=== PATIENT | female | born 1950 | race Caucasian/White ===

== ENCOUNTER 2021-10-31 12:38 | Outpatient (REF) | payer MEDICARE, SELFPAY ==
--- NOTE | ~2021-10-31 | MM_ITS ---
EXAMINATION: MM SCREENING DIGITAL BREAST TOMOSYNTHESIS, BILATERAL CLINICAL INFORMATION: Screening. Asymptomatic. Prior nlb-fx-xqkaj mammography from [place] requested, currently unavailable. No known family history breast cancer. The lifetime risk of breast cancer based on the Tyrer-Cuzick Model is 8%. COMPARISON: None. TECHNIQUE: Digital breast tomosynthesis is performed in both the craniocaudal and mediolateral oblique views along with computer-aided detection (CAD). Synthesized 2D images are generated from the tomosynthesis. FINDINGS: There are scattered areas of fibroglandular density (ACR BI-RADS breast composition Category b). Breast tissue composition borders on heterogeneously dense. There are scattered benign round calcifications in each breast. No architectural abnormality. The axilla and skin contours are unremarkable. No significant mass left breast. There is oval focal asymmetric density 1.7 x 2.5 cm periareolar upper outer right breast, possibly a cyst. MM/MM tomosynthesis screening BI IMPRESSION: Right: -Oval focal asymmetric density periareolar upper outer right breast, possibly a cyst. Left: -No mammographic evidence of malignancy. ASSESSMENT: BI-RADS 0: Incomplete - Need prior outside studies for comparison RECOMMENDATION: -Radiology department staff will attempt to retrieve outside prior exam(s) to allow for comparison in an addendum report. -If prior outside exam is unable to be retrieved, patient will be recalled for additional imaging right breast. This patient's information was entered into a reminder system with a target due date for their next mammogram.
== END 2021-10-31 12:39 | disposition home or self-care (01) ==
LOC: HO.MAMMO 12:38
PROVIDERS: PCP Internal Medicine; Visit Provider Internal Medicine
DX: Z12.31 Encounter for screening mammogram for malignant neoplasm of breast (principal)
CPT/HCPCS: 77063; 77067

== ENCOUNTER → 2021-11-05 11:14 | Outpatient (REF) | payer MEDICARE, SELFPAY ==
--- NOTE | 2021-11-05 11:16 | HM_ITS ---
Conclusion: 1. Patient was monitored for total period of 6 days and 23 hours 2. Baseline rhythm is normal sinus rhythm with average heart of 69 beats per minute 3. No significant pauses or bradycardia noted 4. 33 episodes of short supraventricular runs, longest lasting 7 beats 5. Total of 1024 PACs accounting for 0.16% of total beats account for occasional PACs 6. No patient reported events MTDD
== END ==
LOC: HO.CARD 11:14
PROVIDERS: PCP Internal Medicine; Visit Provider Internal Medicine
DX: I48.91 Unspecified atrial fibrillation (principal); E55.9 Vitamin D deficiency, unspecified; G62.9 Polyneuropathy, unspecified
CPT/HCPCS: 93242

== ENCOUNTER 2021-12-06 09:46 | Outpatient (REF) | payer MEDICARE, SELFPAY ==
[2021-12-06 11:15] LABS: MANUAL DIFF FLAG NO
[2021-12-06 11:23] LABS: Appearance Urine Clear; Color Urine Yellow; Glucose Urine UA Negative (Negative); Leukocyte Esterase Urine Small (1+) (Negative); Nitrite Urine Negative (Negative); Specific Gravity - Urine 1.015 (1.005-1.025); UMIC TRIGGER UA YES; Urine Blood Negative (Negative); Urine Ketones Negative (Negative); Urine Protein Negative (Neg-Trace)
[2021-12-06 11:26] LABS: Basophils Absolute Auto 0.1 X10*3/uL (0.0-0.2); Eosinophils Absolute Auto 0.2 X10*3/uL (0.0-0.4); Hematocrit 42.9 % (37.0-47.0); Hemoglobin 14.1 g/dl (12.0-16.0); Imm Gran Abs Auto 0.02 X10*3/uL (0.00-0.03); Imm Gran Pct Auto 0.3 % (0.0-0.4); Lymphocytes Absolute Auto 1.6 X10*3/uL (1.2-4.9); Lymphocytes Percent Auto 25.6 % (20-40); Mean Corpuscular HGB Conc 32.9 g/dl (31.0-35.0); Mean Corpuscular Volume 88.3 fL (80.0-98.0); Monocytes Absolute Auto 0.4 X10*3/uL (0.1-1.2); Monocytes Percent Auto 6.8 % (2-11); Neutrophils Absolute Auto 3.8 x10*3/uL (2.0-8.3); Neutrophils Percent Auto 63.3 % (45-73); Platelet Count 253 X10*3/uL (160-400); Red Blood Count 4.86 X10*6/uL (4.20-5.50); Red Cell Distribution Width 13.5 % (11.0-16.0); White Blood Count 6.1 X10*3/uL (4.8-10.8)
[2021-12-06 11:42] LABS: Bacteria Urine None Seen (None Seen); Hyaline Casts Urine 0-2 /LPF (0-2); RBC Urine 0-2 /HPF (0-2); Squamous Epithelial Cell Urine 0-2 /HPF (0-2); WBC Urine 0-5 /HPF (0-5)
[2021-12-06 11:47] LABS: Alanine Aminotransferase 16 U/L (0-31); Albumin Level 4.4 g/dL (3.5-5.0); Alkaline Phosphatase 71 U/L (39-117); Anion Gap 13 (12-20); Aspartate Amino Transferase 20 U/L (5-31); Bilirubin Total 0.5 mg/dL (0.0-1.0); Blood Urea Nitrogen 16 mg/dL (9-16); Calcium 9.3 mg/dL (8.4-10.2); Carbon Dioxide 26 mmol/L (22-29); Chloride 105 mmol/L (96-108); Cholesterol 258 mg/dL; Estimated Glomerular Filt Rate > 60; Glucose Fasting 88 mg/dL (60-99); HDL Cholesterol 61 mg/dL; LDL Cholesterol Calculated 175 mg/dl; Potassium 4.4 mmol/L (3.3-5.1); Sodium 140 mmol/L (135-145); Total Protein 7.1 g/dL (6.5-8.0); Triglycerides 113 mg/dL
[2021-12-06 12:10] LABS: TSH reflex Free T4 0.96 uIU/mL (0.32-4.0); Vitamin D 25-OH Total 75.7 ng/mL (>30)
[2021-12-06 12:45] LABS: Folate 17.6 ng/mL (> or = 4.0); Vitamin B12 > 2000 pg/mL (200-900)
== END 2021-12-06 09:47 | disposition home or self-care (01) ==
LOC: HO.HMGCLDS 09:46
PROVIDERS: PCP Internal Medicine; Visit Provider Internal Medicine
DX: Z00.00 Encounter for general adult medical examination without abnormal findings (principal); G62.9 Polyneuropathy, unspecified; I48.91 Unspecified atrial fibrillation; E55.9 Vitamin D deficiency, unspecified
CPT/HCPCS: 36415; 80053; 80061; 81001; 82306; 82607; 82746; 84443; 85025

== ENCOUNTER 2022-01-17 13:49 | Outpatient (REF) | payer MEDICARE, SELFPAY ==
[2022-01-22 20:52] LABS: HPV mRNA E6/E7 Not Detected (Not Detected)
== END 2022-01-17 13:50 | disposition home or self-care (01) ==
LOC: HO.LNP 13:49
PROVIDERS: Visit Provider Internal Medicine
DX: Z01.419 Encounter for gynecological examination (general) (routine) without abnormal findings (principal); Z11.51 Encounter for screening for human papillomavirus (HPV)
CPT/HCPCS: 87624; 88142

== ENCOUNTER 2022-01-24 11:05 | Outpatient (REF) | payer MEDICARE, SELFPAY ==
--- NOTE | ~2022-01-24 | MM_ITS ---
EXAMINATION: BONE DENSITOMETRY CLINICAL INDICATION: Menopause. COMPARISON: None (current study represents initial baseline exam). TECHNIQUE: Using a [employer] DXA System (software version: 13.1) manufactured by [employer], dual-energy x-ray absorptiometry was performed of the lumbar spine and left hip. The images are of good technical quality. Summary results are attached. FINDINGS: AP SPINE L1-L4: BMD 1.001 g/cm2, Z-score -0.4, T-score -1.5, osteopenia. LEFT FEMUR, NECK: BMD 0.838 g/cm2, Z-score -0.1, T-score -1.4, osteopenia. LEFT FEMUR, TOTAL: BMD 0.784 g/cm2, Z-score -0.7, T-score -1.8, osteopenia. IDENTIFIED RISK FACTORS: Menopause, height loss. HISTORY OF FRACTURE: Finger. MEDICATIONS: Multivitamin, vitamin D. MM/XR DEXA axial skeleton IMPRESSION: 1. DIAGNOSIS: Osteopenia based on the lowest T-score value of -1.8 in the total femur applying World Health Organization criteria. 2. 10-YEAR FRACTURE RISK PREDICTION, FRAX: Major osteoporotic fracture (clinical spine, forearm, hip or shoulder) 9.5%. Hip fracture 1.3%. 3. Treatment Recommendations: NOF guidelines recommend consideration for treatment in postmenopausal women and men age 50 and older presenting with the following: -A hip or vertebral (clinical or morphometric) fracture. -T-score less than or equal to -2.5 at the femoral neck or spine after appropriate evaluation to exclude secondary causes. -Low bone mass at the hip or spine and a 10-year fracture probability by FRAX of greater than or equal to 3% for hip fracture or greater than or equal to 20% for major osteoporotic fracture based on the [place] adapted WHO algorithm. 4. Other Recommendations: All treatment decisions require clinical judgment and consideration of individual patient factors, including patient preferences, comorbidities, previous drug use, risk factors not captured in the FRAX model (e.g. frailty, falls, vitamin D deficiency, increased bone turnover, interval significant decline in bone density) and possible under or overestimation of fracture risk by FRAX. Additional medical evaluation for secondary cause of low bone mineral density may be appropriate. FUTURE SCAN RECOMMENDATION: People with diagnosed cases of osteoporosis or at high risk for fracture should have regular bone mineral density tests. For patients eligible for Medicare, routine testing is allowed once every 2 years. The testing frequency can be increased to one year for patients who have rapidly progressing disease, those who are receiving or discontinuing medical therapy to restore bone mass, or have additional risk factors.
== END 2022-01-24 11:06 | disposition home or self-care (01) ==
LOC: HO.MAMMO 11:05
PROVIDERS: PCP Internal Medicine; Visit Provider Internal Medicine
DX: Z13.820 Encounter for screening for osteoporosis (principal); R29.890 Loss of height; Z78.0 Asymptomatic menopausal state
CPT/HCPCS: 77080

== ENCOUNTER 2023-01-06 11:32 | Outpatient (REF) | payer MEDICARE, SELFPAY ==
[2023-01-06 13:45] LABS: MANUAL DIFF FLAG NO
[2023-01-06 13:49] LABS: Basophils Absolute Auto 0.1 X10*3/uL (0.0-0.2); Basophils Percent Auto 1.1 % (0-2); Eosinophils Absolute Auto 0.3 X10*3/uL (0.0-0.4); Eosinophils Percent Auto 4.8 % (0-4); Hematocrit 43.2 % (37.0-47.0); Hemoglobin 14.1 g/dl (12.0-16.0); Imm Gran Abs Auto 0.02 X10*3/uL (0.00-0.03); Imm Gran Pct Auto 0.3 % (0.0-0.4); Lymphocytes Absolute Auto 1.5 X10*3/uL (1.2-4.9); Lymphocytes Percent Auto 23.2 % (20-40); Mean Corpuscular HGB Conc 32.6 g/dl (31.0-35.0); Mean Corpuscular Hemoglobin 28.8 pg (27.0-33.0); Mean Corpuscular Volume 88.3 fL (80.0-98.0); Monocytes Absolute Auto 0.4 X10*3/uL (0.1-1.2); Monocytes Percent Auto 6.8 % (2-11); Neutrophils Absolute Auto 4.1 x10*3/uL (2.0-8.3); Neutrophils Percent Auto 63.8 % (45-73); Platelet Count 253 X10*3/uL (160-400); Red Blood Count 4.89 X10*6/uL (4.20-5.50); Red Cell Distribution Width 13.5 % (11.0-16.0); White Blood Count 6.4 X10*3/uL (4.8-10.8)
[2023-01-06 14:50] LABS: Alanine Aminotransferase 18 U/L (0-31); Albumin Level 4.2 g/dL (3.5-5.0); Alkaline Phosphatase 74 U/L (39-117); Anion Gap 12 (12-20); Aspartate Amino Transferase 20 U/L (5-31); Bilirubin Total 0.4 mg/dL (0.0-1.0); Blood Urea Nitrogen 16 mg/dL (9-16); Calcium 9.4 mg/dL (8.4-10.2); Carbon Dioxide 25 mmol/L (22-29); Chloride 106 mmol/L (96-108); Cholesterol 251 mg/dL (<200); Estimated Glomerular Filt Rate > 60; Glucose Fasting 86 mg/dL (60-99); HDL Cholesterol 58 mg/dL (>40); LDL Cholesterol Calculated 165 mg/dL (<100); Potassium 4.1 mmol/L (3.3-5.1); Sodium 139 mmol/L (135-145); Total Protein 7.2 g/dL (6.5-8.0); Triglycerides 143 mg/dL (<150)
[2023-01-06 14:55] LABS: TSH reflex Free T4 1.01 uIU/mL (0.32-4.0)
== END 2023-01-06 11:33 | disposition home or self-care (01) ==
LOC: HO.HMGCLDS 11:32
PROVIDERS: PCP Internal Medicine; Visit Provider Internal Medicine
DX: Z00.00 Encounter for general adult medical examination without abnormal findings (principal); E78.5 Hyperlipidemia, unspecified; I48.91 Unspecified atrial fibrillation
CPT/HCPCS: 36415; 80053; 80061; 82306; 84443; 85025

== ENCOUNTER 2023-01-22 09:28 | Outpatient (AMB) | payer MEDICARE, SELFPAY ==
--- NOTE | 2023-01-22 09:30 | MHC.PC.OV ---
Vital Signs 01/22/23 09:31 Height 5 ft 6 in Weight 182 lb BMI 29.4 BP 116/70 Blood Pressure Location Lt brachial Position Sitting Pulse 71 Pulse Source Pulse Oximeter Pulse Oximetry (%) 97 Oxygen Delivery Method Room Air Intake Visit Reasons: Vitrectomy of the left eye, 01/30 Intake Note: Pt is here today for pre op. Pt states that she had some congestion and now its in her ears, started with sinus congestion and pain. Allergies No Known Allergies Allergy (Verified 01/22/23 09:33) Medication List - Last Reconciled 01/22/23 by Lorena Villa MD aspirin 325 mg PO DAILY lceytn-vkpnyyrc-mfx C-E-herbal 1,250 mcg-50 mg -67.5 mg-15 mg tabs PO cholecalciferol (vitamin D3) 125 mcg PO QWEEK coenzyme [id number] E 100-100 mg-unit caps PO ginkgo biloba 400 mg PO DAILY Lactobacillus acidophilus (Probiotic) 10,000 mmu cells PO DAILY loratadine 10 mg PO DAILY lutein-zeaxanthin 25-5 mg caps PO magnesium 500 mg PO DAILY melatonin 10 mg PO BEDTIME PRN multivitamin 1 tab PO DAILY [potassium PO DAILY] red yeast rice 600 mg PO DAILY sotalol 80 mg PO BID zinc acetate 50 mg PO DAILY Tobacco use date assessed: 01/22/23 Fall risk assessment: No Falls in past year Last assessed Fall Risk: 01/22/23 Dental Screening Dental Screen Date: 01/22/23 Did you have a dental visit in the last 12 months?: Yes Did you have a dental problem in the last 6 months where you did not have access to dental care?: No Was dental information given to patient?: Patient has dentist HPI Vitrectomy of the left eye, 01/30 HPI Details Pt presents for PE and preop for L vitrectomy. Pt f/u with cardiology for HX of an episode of A fib in [place], controlled on Sotalol. 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 Patient had a Holter monitoring last year negative for AFib. She has been taking a regular aspirin for anticoagulation. Pt denies episodes of palpitations, chest pain or shortness of breath. PFSH Family History Mother HTN (hypertension) Melanoma Social History Housing: Condominium Patient Tobacco Use Status: Never used Tobacco e-Cigarette/Vaping Use: Never Used service: No Current occupational status: retired Cognitive needs: No Hearing needs: No Vision needs: Yes Questionnaire PHQ-9 Over the last 2 weeks, how often have you been bothered by any of the following problems? 1. Little interest or pleasure in doing things: not at all 2. Feeling down, depressed, or hopeless: not at all 3. Trouble falling or staying asleep, or sleeping too much: not at all 4. Feeling tired or having little energy: not at all 5. Poor appetite or overeating: not at all 6. Feeling bad about yourself - or that you are a failure or have let yourself or your family down: not at all 7. Trouble concentrating on things, such as reading the newspaper or watching television: not at all 8. Moving or speaking so slowly that other people could have noticed. Or the opposite - being so fidgety or restless that you have been moving around a lot more than usual: not at all 9. Thoughts that you would be better off or of hurting yourself in some way: not at all Total score: 0 Depression Screening Interpretation: Negative Depression Screening Done: Yes Source: Developed by Drs. Maxwell Amin, Poornima Johnson, Seamus Mccollum and colleagues, with an educational kyaw from [employer]. Thrive Questionnaire Date Thrive assessed: 01/22/23 I am a: Patient What is your living situation today?: I have a steady place to live Within the past 12 months, did the food you bought not last and you didn't have the money to get more?: Never true Within the past 12 months, did you worry whether your food would run out before you got money to buy more?: Never true Do you have trouble paying for medicines?: No Do you have trouble getting transportation to medical appointments?: No Do you have trouble paying your heating and electricity bill?: No Do you have trouble taking care of your child, family member or friend?: No Do you have trouble with day-to-day activities such as bathing, preparing meals, shopping, managing finances, etc.?: No Are you currently unemployed and looking for a job?: No Are you interested in more education?: No Please select the resources that you would like help with: None AUDIT C Alcohol Use Questionnaire (AUDIT-C) 1. How often do you have a drink containing alcohol?: Monthly or less 2. How many drinks containing alcohol do you have on a typical day when you are drinking?: 1 or 2 3. How often do you have six or more drinks on one occasion?: Never Total Score: 1 KENAN-7 AMB Questionnaire KENAN-7 Date KENAN - 7 assessed: 01/22/23 Feeling nervous, anxious, or on edge: 0 = Not at all Not being able to stop or control worryin = Not at all Worrying too much about different things: 0 = Not at all Trouble relaxin = Not at all Being so restless that it is hard to sit still: 0 = Not at all Becoming easily annoyed or irritable: 0 = Not at all Feeling afraid as if something awful might happen: 0 = Not at all Total KENAN-7 score (0-4 normal; 5-9 mild; 10-14 moderate; 15-21 severe): 0 Source: Developed by Drs. Maxwell Amin, Poornima Johnson, Seamus Mccollum and colleagues, with an educational kyaw from [employer]. Physical exam (Primary Care) Vital Signs: Last Vital Signs Pulse 71 01/22/23 09:31 BP 116/70 01/22/23 09:31 Pulse Ox 97 01/22/23 09:31 Oxygen Delivery Method Room Air 01/22/23 09:31 BMI result Body Mass Index 29.4 Tobacco/Smoking Status: Tobacco use Status Tobacco use date assessed 01/22/23 01/22/23 09:41 Patient Tobacco Use Status Never used Tobacco 01/22/23 09:41 e-Cigarette/Vaping Use Never Used 01/22/23 09:30 PHQ-9: PHQ-9 Score PHQ-9: Total score 0 01/22/23 09:53 Depression Screening Interpretation: Negative Thrive Assessment: Date of Thrive Assessment Date Thrive assessed 01/22/23 01/22/23 09:43 Const General: no acute distress HENMT Head: Yes normal to inspection Ears: hearing grossly normal bilaterally General nose exam: Normal external nose present Face and sinus: Yes normal facial exam Mouth: Normal oral and palatal mucosa present Throat: Yes posterior oropharynx normal Eyes General: appearance normal, both eyes and all related structures Neck Neck: Yes no lymphadenopathy and Yes supple Resp Effort & Inspection: normal respiratory effort Auscultation: clear to auscultation bilaterally Cardio Rhythm: regular rhythm Heart sounds: S1 normal heart sound present and S2 normal heart sound present GI Inspection: Yes normal to inspection Palpation (GI): Soft to palpation Percussion: Yes normal to percussion Auscultation: normal bowel sounds Assessment and Plan Assessment & Plan (1) Hyperlipidemia: Comment: declined statins Code(s): E78.5 - Hyperlipidemia, unspecified Plan: Continue low-cholesterol diet, (2) A-fib: Comment: 2007, on Sotalol, f/u with [facility] , on ASA for anticoagulation, refused Coumadin/Eliquis, Echo 04/07 nl EF, mild TR, 7 day Holter frequent APC's, no Afib Code(s): I48.91 - Unspecified atrial fibrillation Plan: EKG showed normal sinus rhythm no ST-T changes. 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 (5) Colonoscopy refused: Comment: 11/05, Cologuard negative 12/06 Code(s): Z53.20 - Procedure and treatment not carried out because of patient's decision for unspecified reasons Orders: Orders [place] echo transthoracic complete Today I48.91 - Unspecified atrial fibrillation Comprehensive [place]. Panel Fast 365 Days E55.9 - Vitamin D deficiency, unspecified, E78.5 - Hyperlipidemia, unspecified, I48.91 - Unspecified atrial fibrillation, Z00.00 - Encounter for general adult medical examination without abnormal findings Complete Blood Count Auto Diff 365 Days E55.9 - Vitamin D deficiency, unspecified, E78.5 - Hyperlipidemia, unspecified, I48.91 - Unspecified atrial fibrillation, Z00.00 - Encounter for general adult medical examination without abnormal findings TSH reflex Free T4 365 Days E55.9 - Vitamin D deficiency, unspecified, E78.5 - Hyperlipidemia, unspecified, I48.91 - Unspecified atrial fibrillation, Z00.00 - Encounter for general adult medical examination without abnormal findings Vitamin D 25-OH Total 365 Days E55.9 - Vitamin D deficiency, unspecified, E78.5 - Hyperlipidemia, unspecified, I48.91 - Unspecified atrial fibrillation, Z00.00 - Encounter for general adult medical examination without abnormal findings Lipid Panel 365 Days E55.9 - Vitamin D deficiency, unspecified, E78.5 - Hyperlipidemia, unspecified, I48.91 - Unspecified atrial fibrillation, Z00.00 - Encounter for general adult medical examination without abnormal findings Referrals Cardiology Referral I48.91 - Unspecified atrial fibrillation Coding Level of Care Code Est Pt Prev Care >65y(02367) Diagnoses Hyperlipidemia E78.5 A-fib I48.91 Round hole of retina of left eye H33.322 Annual physical exam Z00.00 Colonoscopy refused Z53.20
[2023-01-22 09:31] VITALS: BP 116/70; PULSE 71; O2SAT 97; BMI 29.4
== END 2023-01-22 10:38 | disposition home or self-care (01) ==
PROVIDERS: PCP Internal Medicine; Visit Provider Internal Medicine
DX: E78.5 Hyperlipidemia, unspecified (principal); I48.91 Unspecified atrial fibrillation; H33.322 Round hole, left eye; Z00.00 Encounter for general adult medical examination without abnormal findings; Z53.20 Procedure and treatment not carried out because of patient's decision for unspecified reasons
CPT/HCPCS: 99397

== ENCOUNTER → 2023-03-03 13:50 | Outpatient (REF) | payer MEDICARE, SELFPAY ==
--- NOTE | 2023-03-03 13:54 | CA_ITS ---
Transthoracic Echocardiogram Patient (Last, First, Middle): Martita Wolf, Gender: Female Date of : 1950 Age: 72 Procedure Date: 03/03/2023 Procedure Type: Transthoracic Echocardiogram Location: OP Height: 167.64 cm Weight: 82.56 kg BSA: 1.92 m2 Heart Rate: 65 bpm BP: 116 / 70 mmHg Lease Operator: SB Referring MD: Lorena Villa MD Unloading Checker: Nicolas Rod MD Symptoms: I48.91 - Unspecified atrial fibrillation Study Quality: Adequate ECG Rhythm: Sinus Conclusions: - 1. Normal LV ejection fraction 60 65% 2. Cardiac valvular Dopplers within normal limits 3. Normal RV systolic pressure 4. No gross pericardial effusion Findings Left Ventricle Normal left ventricular size, thickness, and systolic function. The visually estimated ejection fraction is between 60-65%. Regional wall motion abnormalities can not be excluded due to suboptimal endocardial definition. Spectral Doppler is indicative of a normal filling pattern. Right Ventricle Normal right ventricular cavity size and systolic function. Atria The left atrium is normal in size. Interatrial shunt cannot be excluded. The right atrium is normal in size. Aortic Valve The aortic valve structure and function is likely normal. There is no aortic valve stenosis. There is no aortic valve regurgitation. Mitral Valve Likely normal mitral valve structure and function. There is trace mitral valve regurgitation. There is no mitral valve stenosis. Pulmonic Valve The pulmonic valve is likely normal. There is trace to mild pulmonic valve regurgitation. Tricuspid Valve Normal tricuspid valve structure. There is trace tricuspid valve regurgitation. The right ventricular systolic pressure is normal. The right ventricular systolic pressure is 23 mmHg. Normal right atrial pressure. There is no evidence of pulmonary hypertension. Great Vessels All visible segments of the aorta are normal in size. The pulmonary artery was not well visualized. Venous The inferior vena cava is normal in size and collapses greater than 50% with inspiration. Pericardium/Pleural There is no evidence of pericardial effusion. Prior Study Comparison No prior study available for comparison. Measurements 2D Linear Measurements IVSd: 0.68 0.6-0.9/0.6-1.0 cm LVIDd: 4.75 3.9-5.3/4.2-5.9 cm LVIDd Index: 2.47 2.4-3.2/2.2-3.1 cm/m2 LVIDs: 3.06 2.0-3.6 cm LVPWd: 0.65 0.7-1.1 cm LA Diam: 3.20 2.7-3.8/3.0-4.0 cm LAIDs Index: 1.67 1.5-2.3 cm/m2 LV Mass: 122.75 67-162/88-224 g LV Mass Index: 63.93 43-95/49-115 g/m2 LVOT Diam: 2.10 3.0+(-)1.3 cm 2D Systolic Function EF 4C: 64.00 >55% Mitral Valve MV Pk E: 0.75 MV PK A: 0.56 MV Decel Time: 186.00 E/A: 1.30 E'Lateral: 7.72 E'Medial: 6.74 E/E' Med: 11.10 E/E' Lat: 9.70 PHT: 54.00 MVA PHT: 4.07 Decel [place]: 4.02 Aortic Valve AoV Pk Rio: 1.14 AoV Pk Grad: 5.00 MARY JANE: 2.78 LVOT LVOT Pk Rio: 0.94 LVOT Mn Rio: 0.65 LVOT VTI: 0.21 LVOT Pk Grad: 4.00 LVOT Mn Grad: 2.00 LVOT Diam: 2.10 LVOT Area: 3.46 Diastolic Function MV Pk E: 0.75 MV Pk A: 0.56 E/A: 1.30 E'Medial: 6.74 E/E' Med: 11.10 E' Laterial: 7.72 E/E' Lat: 9.70 Right Ventricle TAPSE (mm): 27.40 TVS' Rio: 11.40 Tricuspid Valve TR Pk Rio: 2.21 TR Pk Grad: 20.00 RA Press: 3.00 RVSP: 23.00 Great Vessels Aorta Sinus of Valsalva: 3.40 2.0-3.5 cm Ao Asc: 3.30 2.1-3.4 cm Pulmonary Veins Pulm Vein S/D 1.20 Pulmonary Valve PV Pk Rio: 0.87 Peak PV Grad: 3.00 Updated in Other Vendor System with Status of Final Nicolas Rod MD electronically signed on 03/03/2023 5:20:50 PM with status of Final
== END ==
LOC: HO.CARD 13:50
PROVIDERS: PCP Internal Medicine; Visit Provider Internal Medicine
DX: I48.91 Unspecified atrial fibrillation (principal)
CPT/HCPCS: 93306

== ENCOUNTER → 2023-03-03 13:54 | Outpatient (BNV) | payer MEDICARE, SELFPAY | PROVIDERS: PCP Internal Medicine; Visit Provider Internal Medicine Cardiovascular Disease | DX: I48.91 Unspecified atrial fibrillation (principal); I37.1 Nonrheumatic pulmonary valve insufficiency | CPT/HCPCS: 93306 ==

== ENCOUNTER 2023-05-06 13:34 | Outpatient (AMB) | payer MEDICARE, SELFPAY ==
[2023-05-06 13:50] VITALS: BP 120/88; PULSE 75; TEMP 36.4; O2SAT 97; BMI 30.7
--- NOTE | 2023-05-06 13:50 | AM.OFFWIN_ITS ---
Intake Vital Signs 05/06/23 13:50 Height 5 ft 6 in Weight 190 lb BMI 30.7 BP 120/88 Blood Pressure Location Lt brachial Position Sitting Pulse 75 Pulse Source Pulse Oximeter Temp 97.5 F Temp Source Temporal Artery Scan Pulse Oximetry (%) 97 Oxygen Delivery Method Room Air Intake Visit Reasons: EP Puncture wound Intake Note: pt is here today for puncture wound started today Patient Tobacco Use Status: Never used Tobacco Allergies No Known Allergies Allergy (Verified 05/06/23 13:57) Do you need a note to return to daycare/school/sports/work: No HPI HPI Comments History of Present Illness Details 72-year-old female presents with a punct ure wound of her right wrist from a coffee cup the broken her kitchen sink. Last Tdap was over 10 years ago PFSH Family History Mother HTN (hypertension) Melanoma Social History Housing: Condominium Patient Tobacco Use Status: Never used Tobacco e-Cigarette/Vaping Use: Never Used service: No Current occupational status: retired Cognitive needs: No Hearing needs: No Vision needs: Yes Review of Systems Skin/Breast Reports system reviewed and no additional complaints, except as documented and Reports bleeding lesions Physical Exam Vital Signs: Last Vital Signs Temp 97.5 F 05/06/23 13:50 Pulse 75 05/06/23 13:50 BP 120/88 05/06/23 13:50 Pulse Ox 97 05/06/23 13:50 Oxygen Delivery Method Room Air 05/06/23 13:50 BMI result Body Mass Index 30.7 Extrem Other: Physical examination of the right wrist reveals a 1 cm puncture wound just inferior to the wrist crease. She has full range of motion and strength is 5/5 in her wrist and all fingers. She has full neurovascular examination Assessment & Plan Assessment & Plan (1) Puncture wound of hand: Code(s): S61.439A - Puncture wound without foreign body of unspecified hand, initial encounter Plan: Steri-Strips were applied to the puncture wound and a pressure dressing applied she was also given a Tdap. Plan See plan Orders: Orders TDaP Immunization 05/06/23 Z23 - Encounter for immunization Coding Level of Care Code Est Pt Level 3 (91064) Diagnoses Puncture wound of hand Z99.868A
== END 2023-05-06 15:16 | disposition home or self-care (01) ==
PROVIDERS: PCP Internal Medicine; Visit Provider Physician Assistant Medical
DX: S61.439A Puncture wound without foreign body of unspecified hand, initial encounter (principal); Z23 Encounter for immunization
CPT/HCPCS: 90471; 90715; 99213

== ENCOUNTER 2023-07-22 09:42 | Outpatient (REF) | payer MEDICARE, SELFPAY ==
[2023-07-22 13:10] LABS: MANUAL DIFF FLAG NO
[2023-07-22 13:32] LABS: Basophils Absolute Auto 0.1 X10*3/uL (0.0-0.2); Basophils Percent Auto 1.1 % (0-2); Eosinophils Absolute Auto 0.4 X10*3/uL (0.0-0.4); Eosinophils Percent Auto 5.6 % (0-4); Hematocrit 41.4 % (37.0-47.0); Hemoglobin 13.8 g/dl (12.0-16.0); Imm Gran Abs Auto 0.02 X10*3/uL (0.00-0.03); Imm Gran Pct Auto 0.3 % (0.0-0.4); Lymphocytes Absolute Auto 1.6 X10*3/uL (1.2-4.9); Lymphocytes Percent Auto 24.8 % (20-40); Mean Corpuscular HGB Conc 33.3 g/dl (31.0-35.0); Mean Corpuscular Hemoglobin 29.5 pg (27.0-33.0); Mean Corpuscular Volume 88.5 fL (80.0-98.0); Mean Platelet Volume 11.1 fL (9.4-12.3); Monocytes Absolute Auto 0.6 X10*3/uL (0.1-1.2); Monocytes Percent Auto 8.7 % (2-11); Neutrophils Absolute Auto 3.8 x10*3/uL (2.0-8.3); Neutrophils Percent Auto 59.5 % (45-73); Platelet Count 226 X10*3/uL (160-400); Red Blood Count 4.68 X10*6/uL (4.20-5.50); Red Cell Distribution Width 13.9 % (11.0-16.0); White Blood Count 6.3 X10*3/uL (4.8-10.8)
[2023-07-22 14:00] LABS: Alanine Aminotransferase 14 U/L (0-31); Alkaline Phosphatase 62 U/L (39-117); Anion Gap 13 (12-20); Aspartate Amino Transferase 17 U/L (5-31); Bilirubin Total 0.4 mg/dL (0.0-1.0); Blood Urea Nitrogen 19 mg/dL (9-16); Calcium 9.3 mg/dL (8.4-10.2); Carbon Dioxide 25 mmol/L (22-29); Chloride 107 mmol/L (96-108); Cholesterol 218 mg/dL (<200); Estimated Glomerular Filt Rate > 60; Glucose Fasting 83 mg/dL (60-99); HDL Cholesterol 60 mg/dL (>40); LDL Cholesterol Calculated 136 mg/dL (<100); Potassium 4.2 mmol/L (3.3-5.1); Sodium 141 mmol/L (135-145); Total Protein 7.1 g/dL (6.5-8.0); Triglycerides 113 mg/dL (<150)
[2023-07-22 14:08] LABS: TSH reflex Free T4 0.68 uIU/mL (0.32-4.0); Vitamin D 25-OH Total 79.1 ng/mL (>30)
== END 2023-07-22 09:43 | disposition home or self-care (01) ==
LOC: HO.HMGCLDS 09:42
PROVIDERS: PCP Internal Medicine; Visit Provider Internal Medicine
DX: Z00.00 Encounter for general adult medical examination without abnormal findings (principal); E78.5 Hyperlipidemia, unspecified; I48.91 Unspecified atrial fibrillation; E55.9 Vitamin D deficiency, unspecified
CPT/HCPCS: 36415; 80053; 80061; 82306; 84443; 85025

== ENCOUNTER 2023-07-25 10:50 | Outpatient (AMB) | payer MEDICARE, SELFPAY ==
[2023-07-25 10:54] VITALS: BP 124/74; PULSE 72; O2SAT 99; BMI 31.0
--- NOTE | 2023-07-25 10:54 | A.OFFPC_ITS ---
Vital Signs 07/25/23 10:54 Height 5 ft 6 in Weight 192 lb BMI 31.0 BP 124/74 Blood Pressure Location Rt brachial Position Sitting Pulse 72 Pulse Source Pulse Oximeter Pulse Oximetry (%) 99 Oxygen Delivery Method Room Air Intake Visit Reasons: Annual PE Intake Note: Pt is here today for Pre op visit. Pt is having cataract surgery on 08/25/[address] Dempsey. Allergies No Known Allergies Allergy (Verified 07/25/23 10:57) Medication List - Last Reconciled 07/25/23 by Lorena Villa MD aspirin 325 mg PO DAILY dtklli-tguriwqh-vnw C-E-herbal 1,250 mcg-50 mg -67.5 mg-15 mg tabs PO coenzyme I72-lmzgidc E 100-100 mg-unit caps PO ginkgo biloba 400 mg PO DAILY Lactobacillus acidophilus (Probiotic) 10,000 mmu cells PO DAILY loratadine 10 mg PO DAILY lutein-zeaxanthin 25-5 mg caps PO magnesium 500 mg PO DAILY multivitamin 1 tab PO DAILY red yeast rice 600 mg PO DAILY sotalol 80 mg PO BID zinc acetate 50 mg PO DAILY Tobacco use date assessed: 07/25/23 Fall risk assessment: No Falls in past year Last assessed Fall Risk: 07/25/23 Dental Screening Dental Screen Date: 07/25/23 Did you have a dental visit in the last 12 months?: Yes Did you have a dental problem in the last 6 months where you did not have access to dental care?: No Was dental information given to patient?: Patient has dentist HPI Annual PE HPI Details Pt presents for PE/preop for cataract surgery. PFSH Surgical History H/O vitrectomy Family History Mother HTN (hypertension) Melanoma Social History Housing: Condominium Patient Tobacco Use Status: Never used Tobacco e-Cigarette/Vaping Use: Never Used service: No Current occupational status: retired Cognitive needs: No Hearing needs: No Vision needs: Yes Questionnaire PHQ-9 Over the last 2 weeks, how often have you been bothered by any of the following problems? 1. Little interest or pleasure in doing things: not at all 2. Feeling down, depressed, or hopeless: not at all 3. Trouble falling or staying asleep, or sleeping too much: several days 4. Feeling tired or having little energy: several days 5. Poor appetite or overeating: not at all 6. Feeling bad about yourself - or that you are a failure or have let yourself or your family down: not at all 7. Trouble concentrating on things, such as reading the newspaper or watching television: not at all 8. Moving or speaking so slowly that other people could have noticed. Or the opposite - being so fidgety or restless that you have been moving around a lot more than usual: not at all 9. Thoughts that you would be better off or of hurting yourself in some wa y: not at all Total score: 2 Depression Screening Interpretation: Negative Depression Screening Done: Yes Source: Developed by Drs. Maxwell Amin, Poornima Johnson, Seamus Mccollum and colleagues, with an educational kyaw from [employer]. Thrive Questionnaire Date Thrive assessed: 07/25/23 I am a: Patient What is your living situation today?: I have a steady place to live Within the past 12 months, did the food you bought not last and you didn't have the money to get more?: Never true Within the past 12 months, did you worry whether your food would run out before you got money to buy more?: Never true Do you have trouble paying for medicines?: No Do you have trouble getting transportation to medical appointments?: No Do you have trouble paying your heating and electricity bill?: No Do you have trouble taking care of your child, family member or friend?: No Do you have trouble with day-to-day activities such as bathing, preparing meals, shopping, managing finances, etc.?: No Are you currently unemployed and looking for a job?: No Are you interested in more education?: No Please select the resources that you would like help with: None THRIVE Score: 0 AUDIT C Alcohol Use Questionnaire (AUDIT-C) 1. How often do you have a drink containing alcohol?: 2-4 times a month 2. How many drinks containing alcohol do you have on a typical day when you are drinking?: 1 or 2 3. How often do you have six or more drinks on one occasion?: Never Total Score: 2 KENAN-7 AMB Questionnaire KENAN-7 Date KENAN - 7 assessed: 07/25/23 Feeling nervous, anxious, or on edge: 0 = Not at all Not being able to stop or control worryin = Not at all Worrying too much about different things: 0 = Not at all Trouble relaxin = Not at all Being so restless that it is hard to sit still: 0 = Not at all Becoming easily annoyed or irritable: 0 = Not at all Feeling afraid as if something awful might happen: 0 = Not at all Total KENAN-7 score (0-4 normal; 5-9 mild; 10-14 moderate; 15-21 severe): 0 Source: Developed by Drs. Maxwell Amin, Poornima Johnson, Seamus Mccollum and colleagues, with an educational kyaw from [employer]. Review of Systems Const All systems reviewed & are unremarkable except as noted in HPI and below Eyes Reports no additional complaints ENT Reports no additional complaints Card Reports no additional complaints Resp Reports no additional complaints GI Reports no additional complaints Reports no additional complaints Physical exam (Primary Care) Vital Signs: Last Vital Signs Pulse 72 07/25/23 10:54 BP 124/74 07/25/23 10:54 Pulse Ox 99 07/25/23 10:54 Oxygen Delivery Method Room Air 07/25/23 10:54 BMI result Body Mass Index 31.0 Tobacco/Smoking Status: Tobacco use Status Tobacco use date assessed 07/25/23 07/25/23 11:02 Patient Tobacco Use Status Never used Tobacco 07/25/23 10:55 e-Cigarette/Vaping Use Never Used 07/25/23 10:55 PHQ-9: PHQ-9 Score PHQ-9: Total score 2 07/25/23 11:05 Depression Screening Interpretation: Negative Thrive Assessment: Date of Thrive Assessment Date Thrive assessed 07/25/23 07/25/23 11:05 Const General: no acute distress HENMT Head: Yes normal to inspection Ears: hearing grossly normal bilaterally Face and sinus: Yes normal facial exam Mouth: Normal oral and palatal mucosa present Eyes General: appearance normal, both eyes and all related structures Neck Neck: Yes no lymphadenopathy and Yes supple Resp Effort & Inspection: normal respiratory effort Auscultation: clear to auscultation bilaterally Cardio Rhythm: regular rhythm Heart sounds: S1 normal heart sound present and S2 normal heart sound present GI Inspection: Yes normal to inspection Palpation (GI): Soft to palpation Percussion: Yes normal to percussion Auscultation: normal bowel sounds Assessment and Plan Assessment & Plan (1) A-fib: Comment: 2007, on Sotalol, f/u with [facility] , on ASA for anticoagulation, refused Coumadin/Eliquis, Echo 04/07 nl EF, mild TR, 7 day Holter frequent APC's, no Afib Code(s): I48.91 - Unspecified atrial fibrillation Plan: Patient has been seeing research and development scientist annually and would like to [facility] to [facility]. Continue current medications (2) Annual physical exam: Code(s): Z00.00 - Encounter for general adult medical examination without abnormal findings Plan: Well-balanced diet regular physical activity weight loss discussed with the patient. She will have a mammogram at [place] and had negative Cologuard in October 2021 (3) Vitamin D deficiency: Comment: Osteopenia DEXA 11/05 Code(s): E55.9 - Vitamin D deficiency, unspecified Plan: Continue vitamin-D supplement (4) Hyperlipidemia: Comment: declined statins Code(s): E78.5 - Hyperlipidemia, unspecified Plan: Continue low-cholesterol diet (5) Cataract: Code(s): H26.9 - Unspecified cataract Plan: Patient is medically cleared for cataract surgery Orders: Orders MM screening mammo BI Today Z12.31 - Encounter for screening mammogram for malignant neoplasm of breast [facility] [place]. Panel Fast 1 Year E55.9 - Vitamin D deficiency, unspecified, E78.5 - Hyperlipidemia, unspecified, H26.9 - Unspecified cataract, I48.91 - Unspecified atrial fibrillation, Z00.00 - Encounter for general adult medical examination without abnormal findings Complete Blood Count Auto Diff 1 Year E55.9 - Vitamin D deficiency, unspecified, E78.5 - Hyperlipidemia, unspecified, H26.9 - Unspecified cataract, I48.91 - Unspecified atrial fibrillation, Z00.00 - Encounter for general adult medical examination without abnormal findings Vitamin D 25-OH Total 1 Year E55.9 - Vitamin D deficiency, unspecified, E78.5 - Hyperlipidemia, unspecified, H26.9 - Unspecified cataract, I48.91 - Unspecified atrial fibrillation, Z00.00 - Encounter for general adult medical examination without abnormal findings Lipid Panel 1 Year E55.9 - Vitamin D deficiency, unspecified, E78.5 - Hyperlipidemia, unspecified, H26.9 - Unspecified cataract, I48.91 - Unspecified atrial fibrillation, Z00.00 - Encounter for general adult medical examination without abnormal findings Referrals Cardiology Referral I48.91 - Unspecified atrial fibrillation Coding Level of Care Code Est Pt Prev Care >65y(27082) Diagnoses A-fib I48.91 Annual physical exam Z00.00 Vitamin D deficiency E55.9 Hyperlipidemia E78.5 Cataract H26.9
== END 2023-07-25 11:48 | disposition home or self-care (01) ==
PROVIDERS: PCP Internal Medicine; Visit Provider Internal Medicine
DX: I48.91 Unspecified atrial fibrillation (principal); Z00.00 Encounter for general adult medical examination without abnormal findings; E55.9 Vitamin D deficiency, unspecified; E78.5 Hyperlipidemia, unspecified; H26.9 Unspecified cataract
CPT/HCPCS: 99397

== ENCOUNTER 2023-09-08 11:12 | Outpatient (REF) | payer MEDICARE, SELFPAY ==
--- NOTE | ~2023-09-08 | MM_ITS ---
EXAMINATION: MM SCREENING DIGITAL BREAST TOMOSYNTHESIS, BILATERAL CLINICAL INFORMATION: Screening. Asymptomatic. COMPARISON: Mammography: This study is compared with prior exams dating back to 2018. TECHNIQUE: Digital breast tomosynthesis is performed in both the craniocaudal and mediolateral oblique views along with computer-aided detection (CAD). Synthesized 2D images are generated from the tomosynthesis. FINDINGS: The breasts are heterogeneously dense, which may obscure small masses (ACR BI-RADS breast composition Category c). There are no significant masses, abnormal calcifications, or other abnormalities. Bilateral benign calcifications are present. There is minor architectural changes in the medial aspect of the left breast from prior surgery. MM/MM tomosynthesis screening BI IMPRESSION: No mammographic evidence of malignancy. ASSESSMENT: BI-RADS BI-RADS 2 - Benign Findings RECOMMENDATION: Routine annual mammography screening. 1 year F/U This examination should not preclude the clinical evaluation of a suspicious palpable abnormality. This patient's information was entered into a reminder system with a target due date for their next mammogram.
== END 2023-09-08 11:13 | disposition home or self-care (01) ==
LOC: HO.MAMMO 11:12
PROVIDERS: PCP Internal Medicine; Visit Provider Internal Medicine
DX: Z12.31 Encounter for screening mammogram for malignant neoplasm of breast (principal)
CPT/HCPCS: 77063; 77067

== ENCOUNTER → 2023-09-08 11:15 | Outpatient (BNV) | payer MEDICARE, SELFPAY | PROVIDERS: PCP Internal Medicine; Visit Provider Radiology Diagnostic Radiology | DX: Z12.31 Encounter for screening mammogram for malignant neoplasm of breast (principal) | CPT/HCPCS: 77063; 77067 ==

== ENCOUNTER 2024-05-31 13:01 | Outpatient (AMB) | payer MEDICARE, SELFPAY ==
--- NOTE | 2024-05-31 13:04 | MHC.OFFVIS ---
Vital Signs 05/31/24 13:12 Height 5 ft 6 in Weight 200 lb BMI 32.3 BP 145/65 H Blood Pressure Location Lt brachial Position Sitting Pulse 771 H Intake Visit Reasons: lesion on right thigh Intake Note: This patient was referred by Dr. Cedeño for lesion on right thigh. Pt c/o; had a bx done about 6 wks ago by Acoustical Engineer, was refer to us after results, feel a lump around the bx area Laboratory Specialist Required: No Accompanied by: Self / Same As Patient Allergies No Known Allergies Allergy (Verified 05/31/24 13:11) Medication List - Last Reconciled 05/31/24 by Jorge Vega MD aspirin 325 mg PO DAILY olxrea-rlkascjw-ubj C-E-herbal 1,250 mcg-50 mg -67.5 mg-15 mg tabs PO coenzyme L84-bmmxcpo E 100-100 mg-unit caps PO ginkgo biloba 400 mg PO DAILY Lactobacillus acidophilus (Probiotic) 10,000 mmu cells PO DAILY loratadine 10 mg PO DAILY lutein-zeaxanthin 25-5 mg caps PO magnesium 500 mg PO DAILY multivitamin 1 tab PO DAILY red yeast rice 600 mg PO DAILY sotalol 80 mg PO BID zinc acetate 50 mg PO DAILY HPI HPI lesion on right thigh: Details: [age] year old female referred for a skin lesion of the right thigh. She has noticed this flat lesion with discoloration on her right thigh. She says that she thinks this has been therefore over a year. She denies any recent changes She regularly follows with her php magento developer because of previous moles on her skin. She had this lesion biopsied and this had shown atypical melanocytic proliferation. She was therefore referred to me for excision. She says she is in good health otherwise. [facility] Medical History (Updated 05/31/24 @ 13:20 by Jorge Vega MD) Skin lesion of lower extremity Surgical History H/O vitrectomy Family History Mother HTN (hypertension) Melanoma Social History Housing: Condominium Patient Tobacco Use Status: Never used Tobacco e-Cigarette/Vaping Use: Never Used service: No Current occupational status: retired Cognitive needs: No Hearing needs: No Vision needs: Yes Review of Systems Const Denies chills and Denies fever(s) Card Denies chest pain, Denies dyspnea and Denies dyspnea on exertion Resp Denies cough, Denies dyspnea and Denies dyspnea on exertion GI Denies hematochezia and Denies change in bowel habits Denies hematuria Musc Denies back pain and Denies limited range of motion Neuro Denies focal weakness and Denies convulsions Psych Denies depression and Denies mood swings Physical Exam Const General: comfortable and no acute distress Orientation/consciousness: patient oriented x3 Neck Neck: Yes no lymphadenopathy Resp Auscultation: clear to auscultation bilaterally Cardio Rhythm: regular rhythm GI Palpation (GI): Soft to palpation, nontender and no guarding Neuro General: patient oriented x3 Extrem Other: Flat, dark discolored lesion on the right thigh, irregular margins, about 2.2 cm in widest dimension Assessment & Plan Assessment & Plan (1) Skin lesion of lower extremity: Code(s): L98.9 - Disorder of the skin and subcutaneous tissue, unspecified Category: Medical Plan I explained the technique of excision. I reviewed the risks including but not limited to bleeding and infections, as well as the benefits and alternatives. I also explained to her what to expect postoperatively. She understands and wants to proceed. She will see me in the office after that to review with the final path report and remove the sutures. Coding Level of Care Code New Pt Level 3 (94106) Diagnoses Skin lesion of lower extremity L98.9
[2024-05-31 13:12] VITALS: BP 145/65; PULSE 771; BMI 32.3
--- OUTSIDE RECORDS SUMMARY | 2024-05-31 15:07 | XMS_ITS | Clinical Summary ---
Author Organization [facility] Address [address] [address] Phone Care Team Providers Care Silk Examiner Name Role Phone Pcp, Unknown Primary Care Provider Unavailabl e Allergies No known active allergies Medications Medication Sig Dispensed Refills Start Date End Date Status aspirin 325 MG tablet Take 325 mg by mouth daily. Active sotaloL (BETAPACE) 80 MG tablet TAKE 1 TABLET TWICE A DAY 180 tablet 3 04/05/2022 Active Active Problems Problem Noted Date Diagnosed Date Paroxysmal atrial fibrillation 06/22/2021 Social History Tobacco Use Types Packs/Day Years Used Date Smoking Tobacco: Never Smokeless Tobacco: Never Alcohol Use Standard Drinks/Week Comments Yes 0 (1 standard drink = 0.6 oz pur e alcohol) rare Education Answer Date Recorded Are you interested in more education? Not on stephen e 07/13/2022 Are you concerned about learning? Not on file 07/13/2022 No 07/13/2022 No 07/13/2022 Digital Access Answer Date Recorded No 08/11/2022 No 08/11/2022 No 08/11/2022 Reliable internet access at home? Not on file 08/11/2022 Device with a working camera? Not on file Sex and Gender Information Value Date Recorded Sex Assigned at Not on file Gender Identity Not on file Sexual Orientation Not on file Last Filed Vital Signs Vital Sign Reading Time Taken Comments Blood Pressure 140/88 06/22/2021 11:30 AM EDT Pulse 73 06/22/2021 11:30 AM EDT Temperature - - Respiratory Rate - - Oxygen Saturation 100% 06/22/2021 11:30 AM EDT Inhaled Oxygen Concentration - - Weight 83.9 kg (185 lb) 06/22/2021 11:30 AM EDT Height 167.6 cm (5' 6 ) 06/22/2021 11:30 AM EDT Body Mass Index 29.86 06/22/2021 11:30 AM EDT Plan of Treatment Health Maintenance Due Date Last Done Comments Adult Td,Tdap Booster 1950 LIPID PANEL 1950 DEPRESSION SCREENING 1964 HEPATITIS B SCREENING 1970 HEPATITIS C SCREENING 1970 MAMMOGRAM 1992 COLOGUARD 1997 COLONOSCOPY 1997 COLORECTAL CANCER SCREENING 1997 FIT TEST 1997 FOBT 1997 SIGMOIDOSCOPY 1997 VIRTUAL COLONOSCOPY 1997 PNEUMOCOCCAL VACCINES (50+ y ears) (1 of 1 - PCV) 2002 ZOSTER VACCINES (1 of 2) 2002 RSV VACCINE (1 - Risk 60-74 years 1-dose series) 2012 OSTEOPOROSIS SCREENING INITI AL (ONE-TIME) 2017 INFLUENZA VACCINE (#1) 2023 COVID-19 VACCINE ( - 2023-2 5 season) 2023 SMOKING STATUS SCREENING (On ce After 26 Yrs) Completed 06/22/2021 HEPATITIS A VACCINES Aged Out No long er eligible based on patient's age to complete this topic HEPATITIS B VACCINES Aged Out No long er eligible based on patient's age to complete this topic HIB VACCINES Aged Out No longer eligi ble based on patient's age to complete this topic MENINGOCOCCAL VACCINES (ACWY) Aged Out No longer eligible based on patient's age to complete this topic Medical Devices Not on file Martita Wolf Personal/Family Self 1950 [address] [facility] [address] [place] [address] Martita Wolf Personal/Family Self 1950 [address] [facility] [address] [place] [address] Martita Wolf Personal/Family Self 1950 [address] [facility] [address] [place] [address] Martita Wolf Personal/Family Self 1950 [address] [facility] [address] [place] [address] Maryann, Martita Personal/Family Self 1950 [address] [facility] [address] [place] [address] Martita Wolf Personal/Family Self 1950 [address] [facility] [address] [place] [address] Martita Wolf Personal/Family Self 1950 [address] [facility] [address] [place] [address] Martita Wolf Personal/Family Self 1950 [address] [facility] [address] [place] [address] Care Teams Silk Examiner Relationship Specialty Start Date End Date Pcp, Unknown PCP - General 04/06/21 Additional Source Comments The information contained in this document represents components of the legal health record. It is not the complete legal health record.[facility]
--- OUTSIDE RECORDS SUMMARY | 2024-05-31 15:07 | XMS_ITS | Patient Health Record ---
Author Organization [facility] Address [address] [place] [address] Care Team Providers Care Acid Conditioning Worker Name Role Phone Lorena Villa MD Primary Care Provider Carina Conner Unavailable [phone] Allergies No Known Allergies Reason For Referral No Information Medications Medication SIG (Take, Route, Fr equency, Duration) Notes Start Date End Date Status Curcumax Pro Active Multi Vitamin - 1 tablet Orally Once a day for 30 day(s) Active Red Yeast Rice Activ e Loratadine 10 MG 1 tablet Orally Once a day Active Melatonin Active Aspirin 325 MG 1 tablet Orally Once a day for 30 day(s) Active Apple Cider Vinegar Active Sotalol HCl 80 MG 1 tablet Orally Twice a day Active Collagen + biotin Active Co Q 10 ubiquinol Active Social History Tobacco Use: Social History Observation Description Date Details (start date - stop date) Never Smoker NA - NA Tobacco Use/Smoking Question Answer Notes Are you a: nonsmoker Alcohol Screen Question Answer Notes Did you have a drink contain ing alcohol in the past year? Yes How often did you have a dri nk containing alcohol in the past year? Monthly or less (1 point) Points 1 Interpretation Negative Tobacco use other than smoking: Question Answer Notes Are you an other tobacco user? No Problems Problem Type SNOMED Code ICD Code Onset Dates Problem Status W/U Status Risk Notes Problem [id number] Osteoarthritis o f left ankle and foot (M19.072) Active confirmed Plan Of Treatment No Information Insurance Providers Payer Name Payer Address Payer Phone Subscriber Number Group Number Insured Name Patient Relationship to Insured Coverage Start Date Coverage End Date [employer] [address] [place] [address] [id number] Martita Wolf Self - patient is the insured 2 Medical (General) History Medical History History ICD Code Back,Hip,and Knee pain Broken bones wrist osteoarthritis covid-19 Headaches/Migraines Eczema Numbness sinusitis Measles Mumps Chicken pox Surgical History Surgery Date(Month/Year) tonsillectomy 1957 plantar warts multiple x-ray/radiation t herapy wisdom teeth extraction 1970
== END 2024-05-31 13:27 | disposition home or self-care (01) ==
PROVIDERS: PCP Internal Medicine; Referring Provider Dermatology; Visit Provider Surgery
DX: L98.9 Disorder of the skin and subcutaneous tissue, unspecified (principal)
CPT/HCPCS: 99203

== ENCOUNTER → 2024-05-31 13:01 | Outpatient (BNVA) | payer MEDICARE, SELFPAY | PROVIDERS: PCP Internal Medicine; Referring Provider Dermatology; Visit Provider Surgery | DX: L98.9 Disorder of the skin and subcutaneous tissue, unspecified (principal) | CPT/HCPCS: 99202 ==

== ENCOUNTER 2024-06-16 13:23 | Outpatient (REF) | payer MEDICARE, SELFPAY ==
--- OUTSIDE RECORDS SUMMARY | 2024-06-17 08:37 | XMS_ITS | Clinical Summary ---
Author Organization [facility] Address [address] [address] Phone Care Team Providers Care Cotton Inspector Name Role Phone Pcp, Unknown Primary Care [...] Wolf Personal/Family Self 1950 [address] [facility] [address] [place] [address] Martita Wolf Personal/Family Self 1950 [address] [facility] [address] [place] [address] Martita Wolf Personal/Family Self 1950 [address] [facility] [address] [place] [address] Martita Wolf Personal/Family Self 1950 [address] [facility] [address] [place] [address] Maryann, Martita Personal/Family Self 1950 [address] [facility] [address] [place] [address] Martita Wolf Personal/Family Self 1950 [address] [facility] [address] [place] [address] Martita Wolf Personal/Family Self 1950 [address] [facility] [address] [place] [address] Martita Wolf Personal/Family Self 1950 [address] [facility] [address] [place] [address] Care Teams Cotton Inspector Relationship Specialty Start Date End Date Pcp, Unknown PCP - General 04/06/21 Additional Source Comments The information contained in this document represents components of the legal health record. It is not the complete legal health record.[facility]
--- OUTSIDE RECORDS SUMMARY | 2024-06-17 08:37 | XMS_ITS | Patient Health Record ---
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 (M19.072) Active confirmed Plan Of Treatment No Information Insurance Providers Payer Name Payer Address Payer Phone Subscriber Number Group Number Insured Name Patient Relationship to Insured Coverage Start Date Coverage End Date Aetna [address] [place] [address] [id number] Martita Wolf Self - patient is the insured 2 Medical (General) History Medical History History ICD Code Back,Hip,and Knee pain Broken bones wrist osteoarthritis covid-19 Headaches/Migraines Eczema Numbness sinusitis Measles Mumps Chicken pox Surgical History Surgery Date(Month/Year) tonsillectomy 1957 plantar warts multiple x-ray/radiation t herapy wisdom teeth extraction 1970
== END 2024-06-16 13:24 | disposition home or self-care (01) ==
LOC: HO.LNP 13:23
PROVIDERS: PCP Internal Medicine; Visit Provider Surgery
DX: L98.8 Other specified disorders of the skin and subcutaneous tissue (principal); L90.5 Scar conditions and fibrosis of skin; Z98.890 Other specified postprocedural states
CPT/HCPCS: 11403; 88305

== ENCOUNTER 2024-06-16 13:23 | Outpatient (AMB) | payer MEDICARE, SELFPAY ==
--- NOTE | 2024-06-16 13:25 | MHC.OFFVIS ---
Vital Signs 06/16/24 13:30 Height 5 ft 6 in Weight 198 lb BMI 32.0 BP 138/78 Blood Pressure Location Rt brachial Position Sitting Pulse 68 Intake Visit Reasons: excision lesion on right thigh Intake Note: Patient here for re- excision of atypical melanocytic proliferation on Rt anterior lateral distal thigh. Lesion biopsied on 04-21-2024. Dermatopathology report from [facility]. Accesion# [id number]. Accompanied by: Self / Same As Patient Allergies No Known Allergies Allergy (Verified 06/16/24 13:31) [facility] Medical History (Updated 05/31/24 @ 13:20 by Jorge Vega MD) Skin lesion of lower extremity Surgical History H/O vitrectomy Family History Mother HTN (hypertension) Melanoma [facility] Patient Tobacco Use Status: Never used Tobacco e-Cigarette/Vaping Use: Never Used service: No Current occupational status: retired Cognitive needs: No Hearing needs: No Vision needs: Yes Office Procedures Excision Details: She was in supine position. The area of the skin lesion on the thigh was prepped and draped. Lidocaine 1% was used for local anesthesia. I made an elliptical incision on the skin surrounding this lesion with a blade 15. This was carried down through the full-thickness of the skin and part of symptoms layer. This entire lesion was removed with grossly negative margins. The lesion was about 2 point 4 cm in widest dimension. The incision was closed with full-thickness nylon 3-0 simple interrupted sutures. Dressings were applied. The procedure was completed. She tolerated procedure well. There were no immediate complications. She was given wound care instructions. She will be seen in the office for removal sutures. 55301-figfn/arms/legs 2.1-3cm Procedure code (CPT) selection complete Assessment & Plan Assessment & Plan (1) Skin lesion of lower extremity: Code(s): L98.9 - Disorder of the skin and subcutaneous tissue, unspecified Category: Medical Plan: Excision was done in the office. She was given wound care instructions. I will see her for removal sutures in about 2 weeks. Orders: Orders Surgical 06/15/24 L98.9 - Disorder of the skin and subcutaneous tissue, unspecified Coding Level of Care Code Procedure Only Diagnoses Skin lesion of lower extremity L98.9 CPT Codes Trunk/Arms/Legs - CPT: 47773-spftt/arms/legs 2.1-3cm ([id number])
[2024-06-16 13:30] VITALS: BP 138/78; PULSE 68; BMI 32.0
--- OUTSIDE RECORDS SUMMARY | 2024-06-16 16:03 | XMS_ITS | Patient Health Record ---
[facility] Address [address] [place] [address] Care Team Providers Care Candle Pourer Name Role Phone Lorena Villa MD Primary Care Provider Carina Conner Unavailable [phone] Allergies No Known Allergies Reason For Referral [...] Problem Status W/U Status Risk Notes Problem [id number] Osteoarthritis o f left ankle and foot (M19.072) Active confirmed Plan Of Treatment No Information Insurance Providers Payer Name Payer Address Payer Phone Subscriber Number Group Number Insured Name Patient Relationship to Insured Coverage Start Date Coverage End Date A[employer] [address] [place] [address] [id number] Martita Wolf Self - patient is the insured 2 Medical (General) History Medical History History ICD Code Back,Hip,and Knee pain Broken bones wrist osteoarthritis covid-19 Headaches/Migraines Eczema Numbness sinusitis Measles Mumps Chicken pox Surgical History Surgery Date(Month/Year) tonsillectomy 1957 plantar warts multiple x-ray/radiation t herapy wisdom teeth extraction 1970
--- OUTSIDE RECORDS SUMMARY | 2024-06-16 16:03 | XMS_ITS | Clinical Summary ---
Author Organization [facility] Address [address] [address] Phone Care Team Providers Care Mold Stamper Name Role Phone Pcp, Unknown Primary Care [...] Wolf Personal/Family Self 1950 [address] [facility] [address] [place] [address] Martita Wolf Personal/Family Self 1950 [address] [facility] [address] [place] [address] Martita Wolf Personal/Family Self 1950 [address] [facility] [address] [place] [address] Martita Wolf Personal/Family Self 1950 [address] [facility] [address] [place] [address] Maryann, Martita Personal/Family Self 1950 [address] [facility] [address] [place] [address] Martita Wolf Personal/Family Self 1950 [address] [facility] [address] [place] [address] Martita Wolf Personal/Family Self 1950 [address] [facility] [address] [place] [address] Martita Wolf Personal/Family Self 1950 [address] [facility] [address] [place] [address] Care Teams Mold Stamper Relationship Specialty Start Date End Date Pcp, Unknown PCP - General 04/06/21 Additional Source Comments The information contained in this document represents components of the legal health record. It is not the complete legal health record.[facility]
== END 2024-06-16 13:49 | disposition home or self-care (01) ==
LOC: HO.HGS 13:24
PROVIDERS: PCP Internal Medicine; Visit Provider Surgery
DX: L90.5 Scar conditions and fibrosis of skin (principal)
CPT/HCPCS: 11403

== ENCOUNTER 2024-07-01 13:50 | Outpatient (AMB) | payer MEDICARE, SELFPAY ==
--- NOTE | 2024-07-01 13:52 | A.OFFVIS_ITS ---
Vital Signs 07/01/24 13:53 Height 5 ft 6 in Weight 195 lb 12.328 oz BMI 31.6 BP 134/74 Blood Pressure Location Lt brachial Position Sitting Pulse 68 Intake Visit Reasons: s/p suture removal excision lesion on right thigh Intake Note: Patient here s/p WLE atypical melanocytic proliferation on Rt ant lat distal thigh. Reports incision healing well. Patient c/o: no concerns. Denies oozing, pain. WLE: 06-16-2024. Cable Tender Required: No Accompanied by: Self / Same As Patient Allergies No Known Allergies Allergy (Verified 07/01/24 14:01) HPI HPI s/p suture removal excision lesion on right thigh: Details: She underwent excision of a lesion from the right thigh under local anesthesia last June 16. She tolerated procedure well. She currently denies complaints. PFSH Medical History Skin lesion of lower extremity Surgical History Hx of surgical procedure (06/16/24) H/O vitrectomy Family History Mother HTN (hypertension) Melanoma Social History Housing: Condominium Patient Tobacco Use Status: Never used Tobacco e-Cigarette/Vaping Use: Never Used service: No Current occupational status: retired Cognitive needs: No Hearing needs: No Vision needs: Yes Review of Systems Const Denies chills and Denies fever(s) Card Denies dyspnea Resp Denies dyspnea Physical Exam Const General: comfortable and no acute distress Resp Effort & Inspection: normal respiratory effort Extrem Other: Excision site on the right thigh is well healed, not infected, sutures intact Assessment & Plan Assessment & Plan (1) Skin lesion of lower extremity: Code(s): L98.9 - Disorder of the skin and subcutaneous tissue, unspecified Category: Medical Plan: Status post excision. The incision is well healed. Her sutures were removed. Her path report shows atypical melanocytic proliferation without signs of malignancy. I explained to her that the malignant potential of this lesions he is uncertain. There were no specific guidelines on literature about further management for this kind of lesions. The margins however are clear so close follow up is reasonable. She can otherwise see me in the office on a p.r.n. basis. Coding Level of Care Code Global (85291) Diagnoses Skin lesion of lower extremity L98.9
[2024-07-01 13:53] VITALS: BP 134/74; PULSE 68; BMI 31.6
--- OUTSIDE RECORDS SUMMARY | 2024-07-01 16:56 | XMS_ITS | Clinical Summary ---
Author Organization [facility] Address [address] [address] Phone Care Team Providers Care Claims Configuration Analyst Name Role Phone Pcp, Unknown Primary Care [...] LIPID PANEL 1950 DEPRESSION SCREENING 1964 HEPATITIS C SCREENING 1970 MAMMOGRAM 1992 COLOGUARD 1997 COLONOSCOPY 1997 COLORECTAL CANCER SCREENING 1997 FIT TEST 1997 FOBT 1997 SIGMOIDOSCOPY 1997 VIRTUAL COLONOSCOPY 1997 PNEUMOCOCCAL VACCINES (50+ y ears) (1 of 1 - PCV) 2002 ZOSTER VACCINES (1 of 2) 2002 RSV VACCINE (1 - Risk 60-74 years 1-dose series) 2012 OSTEOPOROSIS SCREENING INITI AL (ONE-TIME) 2017 INFLUENZA VACCINE (#1) 2023 COVID-19 VACCINE (1 - 2023-2 5 season) 2023 SMOKING STATUS [...] this topic Medical Devices Not on file [address] [place] [id number] Martita Wolf Personal/Family Self 1950 [address] [facility] [address] [place] [address] Martita Wolf Personal/Family Self 1950 [address] [facility] [address] [place] [address] Martita Wolf Personal/Family Self 1950 [address] [facility] [address] [place] [address] Martita Wolf Personal/Family Self 1950 [address] [facility] [address] [place] [address] Martita Wolf Personal/Family Self 1950 [address] [facility] [address] [place] [address] Martita Wolf Personal/Family Self 1950 [address] [facility] [address] [place] [address] Martita Wolf Personal/Family Self 1950 [address] [facility] [address] [place] [address] Care Teams Claims Configuration Analyst Relationship Specialty Start Date End Date Pcp, Unknown PCP - General 04/06/21 Additional Source Comments The information contained in this document represents components of the legal health record. It is not the complete legal health record.[facility]
--- OUTSIDE RECORDS SUMMARY | 2024-07-01 16:56 | XMS_ITS | Patient Health Record ---
[facility] Address [address] [place] [address] Care Team Providers Care Text Transcriber Name Role Phone Lorena Villa MD Primary Care Provider Carina Conner Unavailable [phone] Allergies No Known Allergies Reason For Referral [...] Problem Status W/U Status Risk Notes Problem [id number] Osteoarthritis o f left ankle and foot (M19.072) Active confirmed Plan Of Treatment No Information Insurance Providers Payer Name Payer Address Payer Phone Subscriber Number Group Number Insured Name Patient Relationship to Insured Coverage Start Date Coverage End Date Aetna [address] [place] [address] [id number] Martita Wolf Self - patient is the insured 2 Medical (General) History Medical History History ICD Code Back,Hip,and Knee pain Broken bones wrist osteoarthritis covid-19 Headaches/Migraines Eczema Numbness sinusitis Measles Mumps Chicken pox Surgical History Surgery Date(Month/Year) tonsillectomy 1957 plantar warts multiple x-ray/radiation t herapy wisdom teeth extraction 1970
== END 2024-07-01 14:05 | disposition home or self-care (01) ==
LOC: HO.HGS 13:51
PROVIDERS: PCP Internal Medicine; Visit Provider Surgery
DX: L98.9 Disorder of the skin and subcutaneous tissue, unspecified (principal)
CPT/HCPCS: 99024

== ENCOUNTER → 2024-07-01 13:50 | Outpatient (BNVA) | payer MEDICARE, SELFPAY | PROVIDERS: PCP Internal Medicine; Visit Provider Surgery | DX: L98.9 Disorder of the skin and subcutaneous tissue, unspecified (principal) | CPT/HCPCS: 99212 ==

== ENCOUNTER 2024-07-15 10:50 | Outpatient (AMB) | payer MEDICARE, SELFPAY ==
[2024-07-15 10:53] VITALS: BP 110/70; PULSE 71; BMI 31.7
--- NOTE | 2024-07-15 10:53 | A.OFFVIS_ITS ---
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 (prev [facility]CCA) Intake Note: New patient dx afib since 2007 was in [place] at the time c/o racing heart at times Architectural Drafter Required: No Allergies No Known Allergies Allergy (Verified 07/01/24 14:01) Medication List - Last Reconciled 07/15/24 by Nicolas Rod MD aspirin 325 mg PO DAILY wledci-deqhblow-rrm C-E-herbal 1,250 mcg-50 mg -67.5 mg-15 mg tabs PO coenzyme K99-tkjrhds E 100-100 mg-unit caps PO ginkgo biloba 400 mg PO DAILY Lactobacillus acidophilus (Probiotic) 10,000 mmu cells PO DAILY loratadine 10 mg PO DAILY lutein-zeaxanthin 25-5 mg caps PO magnesium 500 mg PO DAILY multivitamin 1 tab PO DAILY red yeast rice 600 mg PO DAILY sotalol 80 mg PO BID zinc acetate 50 mg PO DAILY HPI Comments Details: Thank you for referring Martita in cardiology consultation today for management of paroxysmal atrial fibrillation. She is a pleasant 74-year-old woman with history of 1 major episode of atrial fibrillation 2007 while she was in for now. At that time she was started on sotalol therapy and has maintained on sotalol therapy since then. For brief period of time she was also prescribed warfarin at that time for thromboembolic prevention. However since then she has been on now on aspirin 325 mg for thromboembolic prophylaxis. Patient has been doing well overall with no major hospitalization or episodes of atrial fibrillation. She however says she gets multiple episodes of rapid heart rate. The last episode was about 2 days ago. She said this lasted for 2-3 hours and this was with longest episode. She had no other associated symptoms of shortness of breath, chest pain or lightheadedness. She however did have prolonged heart rate and thinks that heart rate was very regular at that time. She was not clear about the trigger but said a day or 2 prior to that she had a trip to [place] and which was quite busy and stressful. She denies any significant alcohol use or caffeine use. These episodes of rapid heart rate happen episodically in infrequently. She was referred here for further management as she wants to switch her cardiology care locally. She says she does not exercise regularly but he has no symptoms with exertion. Denies any exertional chest pain or shortness of breath. No orthopnea, PND, leg edema. PFS Medical History A-fib Paroxysmal atrial fibrillation Skin lesion of lower extremity Surgical History Hx of surgical procedure (06/16/24) H/O vitrectomy Family History Mother HTN (hypertension) Melanoma Social History Housing: Condominium Patient Tobacco Use Status: Never used Tobacco e-Cigarette/Vaping Use: Never Used service: No Current occupational status: retired Cognitive needs: No Hearing needs: No Vision needs: Yes Review of Systems Const Denies chills, Denies fatigue, Denies fever(s), Denies frequent falls, Denies weakness, Denies weight gain and Denies weight loss Eyes Denies loss of vision ENT Denies dizziness Card Denies chest pain, Denies leg edema, Denies lightheadedness, Denies palpit ations, Denies dyspnea, Denies dyspnea on exertion, Denies orthopnea and Denies other (loss of consciousness) Resp Denies cough, Denies dyspnea, Denies dyspnea on exertion and Denies wheezing GI Denies hematochezia and Denies change in stool character Denies urinary frequency and Denies dysuria Musc Denies abnormal gait, Denies muscle weakness, Denies numbness, Denies radiating pain into limb and Denies tingling Skin/Breast Denies nail changes and Denies rash Neuro Denies abnormal gait, Denies dizziness, Denies frequent falls, Denies loss of vision, Denies memory loss, Denies numbness, Denies tingling and Denies weakness Psych Denies depression and Denies memory loss Endo Denies fatigue and Denies palpitations Wayne/Lymph Reports easy bruising and Reports other (anemia) Aller/Immun Denies wheezing Physical Exam Vital Signs: Last Vital Signs Pulse 71 07/15/24 10:53 BP 110/70 07/15/24 10:53 BMI result Body Mass Index 31.7 Const General: cooperative, comfortable, no acute distress, alert, Physically active and well groomed Nutritional Appearance: overweight Orientation/consciousness: patient oriented x3 Limitations: no limitations HEENT Head: Yes normocephalic and Yes atraumatic Neck Neck: Yes trachea midline, Yes supple and Yes no JVD Resp Effort & Inspection: normal respiratory effort Auscultation: clear to auscultation bilaterally Cardio Jugular venous distension: no JVD Rate: regular rate Rhythm: regular rhythm Heart sounds: S1 normal heart sound present, S2 normal heart sound present, no click, no gallops, no murmurs and no rubs Bruits: no carotid bruits GI Auscultation: normal bowel sounds Skin General skin exam: no rashes or lesions noted Neuro General: patient oriented x3 and no focal motor deficits Extrem General: Yes no clubbing, cyanosis or edema Psych Appearance: grossly normal Office Procedures EKG Details: EKG shows normal sinus rhythm with normal EKG with normal intervals 56230-[id number], Complete Assessment & Plan Assessment & Plan (1) Paroxysmal atrial fibrillation: Code(s): I48.0 - Paroxysmal atrial fibrillation Category: Medical Plan: Highly symptomatic paroxysmal atrial fibrillation this elderly woman which has remained predominantly suppressed without hospitalization on sotalol therapy. However she has been getting symptoms intermittently of rapid heart rate last episode was longer lasting 2-3 hours. She was symptomatic with it. However she says that these episodes were more regular. Question etiology. Still could represent atrial fibrillation. Possibility of atrial flutter also exist. I have suggested her to invest in smart phone based EKG device. She likes the idea and will look into it and most likely get it. This will help with further management of her palpitations and arrhythmias. I have also advised her to log her symptoms and right the duration as well as possible triggers that she can identified. Meanwhile I will continue with sotalol therapy. Her EKG is within acceptable limits. She will need EKGs every 6 months and renal function test done every 6 months. She understands agrees. Will update echocardiogram to evaluate LV systolic and diastolic function as well as biatrial chamber size. She is agreeable with that as well. Avoidance of stimulants was discussed. She is encouraged to participate in aggressive lifestyle modification with weight loss program and management of weight has been shown to reduce recurrence of atrial fibrillation this was discussed with her. CHADSVASc score of 2. Discu ssed her thromboembolic risk. She is currently taking aspirin which is not an adequate prophylaxis for thromboembolic protection this was discussed with her. We discussed about potentially using Eliquis which has similar bleeding risk to aspirin in the studies and would be more preferred agent to prevent stroke. She will like to investigate this and think about it. She will call my office if n eed be. Follow up in the clinic in 6 months for EKG in 1 year with me. Thank you for allowing me to partake in her care Orders: Orders CA echo transthoracic complete Today I48.0 - Paroxysmal atrial fibrillation Coding Level of Care Code New Pt Level 4 (24146) Complex EM visit Add On G2211 Diagnoses Paroxysmal atrial fibrillation I48.0 CPT Codes EKG - CPT: 64713-[id number], Complete ([id number])
--- OUTSIDE RECORDS SUMMARY | 2024-07-15 12:28 | XMS_ITS | Clinical Summary ---
Author Organization [facility] Address [address] [address] Phone Care Team Providers Care Gis Web Developer Name Role Phone Pcp, Unknown Primary Care [...] this topic Medical Devices Not on file [address] [place] [address] Martita Wolf Personal/Family Self 1950 [address] [facility] [address] [place] [address] Martita Wolf Personal/Family Self 1950 [address] [facility] [address] [place] [address] Martita Wolf Personal/Family Self 1950 [address] [facility] [address] [place] [address] Martita Wolf Personal/Family Self 1950 [address] [facility] [address] [place] [address] Martita Wolf Personal/Family Self 1950 [address] [facility] [address] [place] [address] Martita Wolf Personal/Family Self 1950 [address] [facility] [address] [place] [address] Martita Wolf Personal/Family Self [address] [facility] [address] [place] [address] Care Teams Gis Web Developer Relationship Specialty Start Date End Date Pcp, Unknown PCP - General 04/06/21 Additional Source Comments The information contained in this document represents components of the legal health record. It is not the complete legal health record.[facility]
--- OUTSIDE RECORDS SUMMARY | 2024-07-15 12:28 | XMS_ITS | Patient Health Record ---
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 (M19.072) Active confirmed Plan Of Treatment No Information Insurance Providers Payer Name Payer Address Payer Phone Subscriber Number Group Number Insured Name Patient Relationship to Insured Coverage Start Date Coverage End Date Aetna [address] [place] [address] [phone] [id number] Martita Wolf Self - patient is the insured 2 Medical (General) History Medical History History ICD Code Back,Hip,and Knee pain Broken bones wrist osteoarthritis covid-19 Headaches/Migraines Eczema Numbness sinusitis Measles Mumps Chicken pox Surgical History Surgery Date(Month/Year) tonsillectomy 1957 plantar warts multiple x-ray/radiation t herapy wisdom teeth extraction 1970
== END 2024-07-15 11:28 | disposition home or self-care (01) ==
LOC: HO.HCS 10:51
PROVIDERS: PCP Internal Medicine; Visit Provider Internal Medicine Cardiovascular Disease
DX: I48.0 Paroxysmal atrial fibrillation (principal)
CPT/HCPCS: 93010; 99214; G2211

== ENCOUNTER → 2024-07-15 10:50 | Outpatient (BNVA) | payer MEDICARE, SELFPAY | PROVIDERS: PCP Internal Medicine; Visit Provider Internal Medicine Cardiovascular Disease | DX: I48.0 Paroxysmal atrial fibrillation (principal) | CPT/HCPCS: 93005; 99212 ==

== ENCOUNTER 2024-08-06 10:16 | Outpatient (REF) | payer MEDICARE, SELFPAY ==
--- OUTSIDE RECORDS SUMMARY | 2024-08-06 10:29 | XMS_ITS | Patient Health Record ---
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.072) Active confirmed Plan Of Treatment No Information Insurance Providers Payer Name Payer Address Payer Phone Subscriber Number Group Number Insured Name Patient Relationship to Insured Coverage Start Date Coverage End Date Aetna [address] [place] [phone] [id number] Martita Wolf Self - patient is the insured 2 Medical (General) History Medical History History ICD Code Back,Hip,and Knee pain Broken bones wrist osteoarthritis covid-19 Headaches/Migraines Eczema Numbness sinusitis Measles Mumps Chicken pox Surgical History Surgery Date(Month/Year) tonsillectomy 1957 plantar warts multiple x-ray/radiation t herapy wisdom teeth extraction 1970
[2024-08-06 13:22] LABS: MANUAL DIFF FLAG NO
[2024-08-06 13:41] LABS: Basophils Absolute Auto 0.1 X10*3/uL (0.0-0.2); Basophils Percent Auto 1.3 % (0-2); Eosinophils Absolute Auto 0.4 X10*3/uL (0.0-0.4); Eosinophils Percent Auto 5.8 % (0-4); Hematocrit 41.7 % (37.0-47.0); Hemoglobin 13.8 g/dl (12.0-16.0); Imm Gran Abs Auto 0.01 X10*3/uL (0.00-0.03); Imm Gran Pct Auto 0.2 % (0.0-0.4); Lymphocytes Absolute Auto 1.4 X10*3/uL (1.2-4.9); Lymphocytes Percent Auto 23.3 % (20-40); Mean Corpuscular HGB Conc 33.1 g/dl (31.0-35.0); Mean Corpuscular Hemoglobin 29.2 pg (27.0-33.0); Mean Corpuscular Volume 88.2 fL (80.0-98.0); Monocytes Absolute Auto 0.5 X10*3/uL (0.1-1.2); Monocytes Percent Auto 7.9 % (2-11); Neutrophils Absolute Auto 3.8 x10*3/uL (2.0-8.3); Neutrophils Percent Auto 61.5 % (45-73); Platelet Count 236 X10*3/uL (160-400); Red Blood Count 4.73 X10*6/uL (4.20-5.50); Red Cell Distribution Width 14.2 % (11.0-16.0); White Blood Count 6.2 X10*3/uL (4.8-10.8)
[2024-08-06 14:31] LABS: Alanine Aminotransferase 17 U/L (0-31); Albumin Level 4.2 g/dL (3.5-5.0); Alkaline Phosphatase 65 U/L (39-117); Anion Gap 11 (12-20); Aspartate Amino Transferase 20 U/L (5-31); Bilirubin Total 0.4 mg/dL (0.0-1.0); Blood Urea Nitrogen 22 mg/dL (9-16); Calcium 9.2 mg/dL (8.4-10.2); Carbon Dioxide 26 mmol/L (22-29); Chloride 110 mmol/L (96-108); Cholesterol 204 mg/dL (<200); Estimated Glomerular Filt Rate > 60; Glucose Fasting 84 mg/dL (60-99); HDL Cholesterol 57 mg/dL (>40); LDL Cholesterol Calculated 124 mg/dL (<100); Potassium 3.8 mmol/L (3.3-5.1); Sodium 143 mmol/L (135-145); Triglycerides 118 mg/dL (<150); Vitamin D 25-OH Total 99.3 ng/mL (>30)
== END 2024-08-06 10:17 | disposition home or self-care (01) ==
LOC: HO.HMGCLDS 10:16
PROVIDERS: PCP Internal Medicine; Visit Provider Internal Medicine
DX: Z00.00 Encounter for general adult medical examination without abnormal findings (principal); H26.9 Unspecified cataract; I48.91 Unspecified atrial fibrillation; E55.9 Vitamin D deficiency, unspecified; E78.5 Hyperlipidemia, unspecified
CPT/HCPCS: 36415; 80053; 80061; 82306; 85025

== ENCOUNTER → 2024-08-16 14:45 | Outpatient (REF) | payer MEDICARE, SELFPAY ==
--- NOTE | 2024-08-16 14:48 | CA_ITS ---
Transthoracic Echocardiogram Patient (Last, First, Middle): Martita Wolf, Gender: Female Date of : 1950 Age: 74 Procedure Date: 08/16/2024 Procedure Type: Transthoracic Echocardiogram Location: OP Height: 167.64 cm Weight: 88.91 kg BSA: 1.98 m2 Heart Rate: 65 bpm BP: 110 / 70 mmHg Cadd Drafter: RIA Referring MD: Nicolas Rod MD Symptoms: I48.0 - Paroxysmal atrial fibrillation Study Quality: Adequate w contrast ECG Rhythm: Sinus Conclusions: - The left ventricular systolic function is normal. The visually estimated ejection fraction is between 60-65%. - No obvious valvular pathology seen on this study. - Probably large aortic arch plaque, but not well visualized. Findings Procedure Information Contrast agent, definity, is being given per protocol without apparent complications. Left Ventricle Normal left ventricular cavity size. There is normal left ventricular wall thickness. The left ventricular systolic function is normal. The visually estimated ejection fraction is between 60-65%. There is no evidence of regional wall motion abnormalities. Diastolic function is normal for age. Right Ventricle Normal right ventricular cavity size and systolic function. Atria Both atria are normal in size. Aortic Valve There is a normal trileaflet aortic valve. There is no aortic valve stenosis. There is no aortic valve regurgitation. Mitral Valve The mitral valve appears normal. There is trace mitral valve regurgitation. There is no mitral valve stenosis. Pulmonic Valve There is trace pulmonic valve regurgitation. Tricuspid Valve There is mild tricuspid valve regurgitation. There is no evidence of pulmonary hypertension. Great Vessels The asc aorta is normal in size. Probably large aortic arch plaque, but not well visualized. Venous The inferior vena cava is normal in size and collapses greater than 50% with inspiration. Pericardium/Pleural There is no evidence of pericardial effusion. Prior Study Comparison No significant change compared to prior study dated: 03/03/2023. See comment on aorta. Recommendations, Care & Conclusions No obvious valvular pathology seen on this study. Measurements 2D Linear Measurements IVSd: 0.77 0.6-0.9/0.6-1.0 cm LVIDd: 4.30 3.9-5.3/4.2-5.9 cm LVIDd Index: 2.17 2.4-3.2/2.2-3.1 cm/m2 LVIDs: 2.45 2.0-3.6 cm LVPWd: 0.65 0.7-1.1 cm LA Diam: 3.30 2.7-3.8/3.0-4.0 cm LAIDs Index: 1.67 1.5-2.3 cm/m2 LV Mass: 112.36 67-162/88-224 g LV Mass Index: 56.75 43-95/49-115 g/m2 LVOT Diam: 1.90 3.0+(-)1.3 cm 2D Systolic Function EF 4C: 69.60 >55% EF 2C: 71.40 >55% EF BiP: 70.50 >55% Mitral Valve MV Pk E: 0.63 MV PK A: 0.58 MV Decel Time: 211.00 E/A: 1.10 E'Lateral: 6.53 E'Medial: 5.22 E/E' Med: 12.10 E/E' Lat: 9.60 PHT: 62.00 MVA PHT: 3.55 Decel Bradford: 2.99 Aortic Valve AoV Pk Rio: 1.10 AoV Pk Grad: 5.00 MARY JANE: 2.98 LVOT LVOT Pk Rio: 1.05 LVOT Mn Rio: 0.70 LVOT VTI: 0.21 LVOT Pk Grad: 4.00 LVOT Mn Grad: 2.00 LVOT Diam: 1.90 LVOT Area: 2.84 Diastolic Function MV Pk E: 0.63 MV Pk A: 0.58 E/A: 1.10 E'Medial: 5.22 E/E' Med: 12.10 E' Laterial: 6.53 E/E' Lat: 9.60 Right Ventricle TAPSE (mm): 25.80 TVS' Rio: 12.70 Tricuspid Valve TR Pk Rio: 2.12 TR Pk Grad: 18.00 RA Press: 3.00 RVSP: 21.00 Great Vessels Aorta Sinus of Valsalva: 3.00 2.0-3.5 cm Ao Asc: 3.50 2.1-3.4 cm Pulmonary Veins Pulm Vein S/D 1.50 Pulmonary Valve PV Pk Rio: 1.02 Peak PV Grad: 4.00 NE Pk Rio: 1.74 Updated in Other Vendor System with Status of Final Abhilash Jackson MD electronically signed on 08/17/2024 2:17:54 PM with status of Final
--- OUTSIDE RECORDS SUMMARY | 2024-08-16 16:02 | XMS_ITS | Patient Health Record ---
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 Role Phone Lorena Villa MD Primary Care Provider Carina Conner Unavailable [phone] Allergies No Known Allergies Reason For Referral [...] Problem Status W/U Status Risk Notes Problem [id number] Osteoarthritis o f left ankle and foot (M19.072) Active confirmed Plan Of Treatment No Information Insurance Providers Payer Name Payer Address Payer Phone Subscriber Number Group Number Insured Name Patient Relationship to Insured Coverage Start Date Coverage End Date Aetna [address] [place] [address] [phone] [id number] Martita Wolf Self - patient is the insured 2 Medical (General) History Medical History History ICD Code Back,Hip,and Knee pain Broken bones wrist osteoarthritis covid-19 Headaches/Migraines Eczema Numbness sinusitis Measles Mumps Chicken pox Surgical History Surgery Date(Month/Year) tonsillectomy 1957 plantar warts multiple x-ray/radiation t herapy wisdom teeth extraction 1970
== END ==
LOC: HO.CARD 14:45
PROVIDERS: PCP Internal Medicine; Visit Provider Internal Medicine Cardiovascular Disease
DX: I48.0 Paroxysmal atrial fibrillation (principal)
CPT/HCPCS: 93306; Q9957

== ENCOUNTER → 2024-08-16 14:48 | Outpatient (BNV) | payer MEDICARE, SELFPAY | PROVIDERS: PCP Internal Medicine; Visit Provider Internal Medicine | DX: I34.0 Nonrheumatic mitral (valve) insufficiency (principal) | CPT/HCPCS: 93306 ==

== ENCOUNTER 2024-08-17 10:04 | Outpatient (AMB) | payer MEDICARE, SELFPAY ==
[2024-08-17 10:21] VITALS: BP 122/80; PULSE 67; RESP 18; TEMP 36.6; O2SAT 98; BMI 31.0
--- NOTE | 2024-08-17 10:21 | MHC.PC.OV ---
Vital Signs 08/17/24 10:21 Height 5 ft 6 in Weight 192 lb BMI 31.0 BP 122/80 Blood Pressure Location Lt brachial Position Sitting Respiration 18 Pulse 67 Pulse Source Pulse Oximeter Temp 97.9 F Temp Source Oral Pulse Oximetry (%) 98 Oxygen Delivery Method Room Air Intake Visit Reasons: Annual PE-Reschedule Intake Note: Pt is here today for PE. Allergies No Known Allergies Allergy (Verified 08/17/24 10:21) Medication List - Last Reconciled 08/17/24 by Lorena Villa MD aspirin 325 mg PO DAILY ubbyxp-vutzrdqk-ttv C-E-herbal 1,250 mcg-50 mg -67.5 mg-15 mg tabs PO coenzyme Y14-eexdxau E 100-100 mg-unit caps PO ginkgo biloba 400 mg PO DAILY Lactobacillus acidophilus (Probiotic) 10,000 mmu cells PO DAILY loratadine 10 mg PO DAILY lutein-zeaxanthin 25-5 mg caps PO magnesium 500 mg PO DAILY multivitamin 1 tab PO DAILY red yeast rice 600 mg PO DAILY sotalol 80 mg PO BID zinc acetate 50 mg PO DAILY Tobacco use date assessed: 08/17/24 Fall risk assessment: No Falls in past year Last assessed Fall Risk: 08/17/24 Dental Screening Dental Screen Date: 08/17/24 Did you have a dental visit in the last 12 months?: Yes Did you have a dental problem in the last 6 months where you did not have access to dental care?: No Was dental information given to patient?: Patient has dentist HPI Annual PE-Reschedule HPI Details Pt presents for PE PFSH Medical History (Updated 08/17/24 @ 11:40 by Lorena Villa MD) A-fib Annual physical exam Colonoscopy refused Skin lesion of lower extremity Surgical History Hx of cataract surgery Hx of surgical procedure (06/16/24) H/O vitrectomy Family History Mother HTN (hypertension) Melanoma Social History (Updated 08/17/24 @ 11:39 by Lorena Villa MD) Household Members Other:: , daughter wang in [facility] Housing: Condominium Patient Tobacco Use Status: Never used Tobacco e-Cigarette/Vaping Use: Never Used service: No Current occupational status: retired Cognitive needs: No Hearing needs: No Vision needs: Yes Questionnaire PHQ-9 Over the last 2 weeks, how often have you been bothered by any of the following problems? 1. Little interest or pleasure in doing things: not at all 2. Feeling down, depressed, or hopeless: not at all 3. Trouble falling or staying asleep, or sleeping too much: several days 4. Feeling tired or having little energy: several days 5. Poor appetite or overeating: not at all 6. Feeling bad about yourself - or that you are a failure or have let yourself or your family down: not at all 7. Trouble concentrating on things, such as reading the newspaper or watching television: not at all 8. Moving or speaking so slowly that other people could have noticed. Or the opposite - being so fidgety or restless that you have been moving around a lot more than usual: not at all 9. Thoughts that you would be better off or of hurting yourself in some way: not at all Total score: 2 Depression Screening Interpretation: Negative Depression Screening Done: Yes 63811 - PHQ-9 Billing: Yes Source: Developed by Drs. Maxwell Amin, Poornima Johnson, Seamus Mccollum and colleagues, with an educational kyaw from [employer]. Thrive Questionnaire Date Thrive assessed: 08/17/24 I am a: Patient What is your living situation today?: I have a steady place to live Within the past 12 months, did the food you bought not last and you didn't have the money to get more?: Never true Within the past 12 months, did you worry whether your food would run out before you got money to buy more?: Never true Do you have trouble paying for medicines?: No Do you have trouble getting transportation to medical appointments?: No Do you have trouble paying your heating and electricity bill?: No Do you have trouble taking care of your child, family member or friend?: No Do you have trouble with day-to-day activities such as bathing, preparing meals, shopping, managing finances, etc.?: No Are you currently unemployed and looking for a job?: No Are you interested in more education?: No Please select the resources that you would like help with: None Currently or been in a relationship where the following occur: No concerns reported THRIVE Score: 0 AUDIT C Alcohol Use Questionnaire (AUDIT-C) 1. How often do you have a drink containing alcohol?: Monthly or less 2. How many drinks containing alcohol do you have on a typical day when you are drinking?: 1 or 2 3. How often do you have six or more drinks on one occasion?: Never Total Score: 1 KENAN-7 AMB Questionnaire KENAN-7 Date KENAN - 7 assessed: 08/17/24 Feeling nervous, anxious, or on edge: 0 = Not at all Not being able to stop or control worryin = Not at all Worrying too much about different things: 0 = Not at all Trouble relaxin = Not at all Being so restless that it is hard to sit still: 0 = Not at all Becoming easily annoyed or irritable: 0 = Not at all Feeling afraid as if something awful might happen: 0 = Not at all Total KENAN-7 score (0-4 normal; 5-9 mild; 10-14 moderate; 15-21 severe): 0 Source: Developed by Drs. Maxwell Amin, Poornima Johnson, Seamus Mccollum and colleagues, with an educational kyaw from [employer]. KENAN-7 Assessment Billing KENAN-7 Assessment Tool: KENAN-7 Assessment 99820 Review of Systems Const All systems reviewed & are unremarkable except as noted in HPI and below Eyes Reports no additional complaints ENT Reports no additional complaints Card Reports no additional complaints Resp Reports no additional complaints GI Reports no additional complaints Reports no additional complaints Physical exam (Primary Care) Vital Signs: Last Vital Signs Temp 97.9 F 08/17/24 10:21 Pulse 67 08/17/24 10:21 Resp 18 08/17/24 10:21 BP 122/80 08/17/24 10:21 Pulse Ox 98 08/17/24 10:21 Oxygen Delivery Method Room Air 08/17/24 10:21 BMI result Body Mass Index 31.0 Tobacco/Smoking Status: Tobacco use Status Tobacco use date assessed 08/17/24 08/17/24 10:23 Patient Tobacco Use Status Never used Tobacco 08/17/24 10:23 e-Cigarette/Vaping Use Never Used 08/17/24 10:23 PHQ-9: PHQ-9 Score PHQ-9: Total score 2 08/17/24 10:54 Depression Screening Interpretation: Negative Thrive Assessment: Date of Thrive Assessment Date Thrive assessed 08/17/24 08/17/24 10:29 Currently or been in a relationship where the following occur: No concerns reported Const General: no acute distress HENMT Head: Yes normal to inspection Ears: hearing grossly normal bilaterally Face and sinus: Yes normal facial exam Mouth: Normal oral and palatal mucosa present Throat: Yes posterior oropharynx normal Eyes General: appearance normal, both eyes and all related structures Neck Neck: Yes no lymphadenopathy and Yes supple Resp Effort & Inspection: normal respiratory effort Auscultation: clear to auscultation bilaterally Cardio Rhythm: regular rhythm Heart sounds: S1 normal heart sound present and S2 normal heart sound present GI Inspection: Yes normal to inspection Palpation (GI): Soft to palpation Percussion: Yes normal to percussion Auscultation: normal bowel sounds Immunizations pneumoc 20-pablo conj-dip cr(PF) 0.5 mL IM syringe Performing Provider: Lorena Villa MD Performing Location: [facility] Administered by: JAVIER Mccurdy on 08/17/24 11:15 Dose Route Admin Location Dispensed Lot Number Expiration Date [employer] 0.5 mL IM Left Deltoid 0.5 mL [id number] 05/14/25 [employer] VIS Given Date VIS Provided VIS Publication Date 08/17/24 Single Vaccine 21 Eligibility Eligibility Date Funding Source Not [facility] Eligible 08/17/24 Private Coding Level of Care Code Est Pt Prev Care >65y(35739) Diagnoses Hyperlipidemia E78.5 Annual physical exam Z00.00 A-fib I48.91 Additional Codes KENAN-7 Assessment Billing - KENAN-7 Assessment Tool: KENAN-7 Assessment 54766 ([id number]) PHQ-9 - 84118 - PHQ-9 Billing: Yes ([id number]) Assessment & Plan Assessment & Plan (1) Hyperlipidemia: Comment: declined statins Code(s): E78.5 - Hyperlipidemia, unspecified Category: Medical Plan: IMPROVING CONTINUE LOW-CHOLESTEROL DIET (2) Annual physical exam: Code(s): Z00.00 - Encounter for general adult medical examination without abnormal findings Category: Medical Plan: Well-balanced diet regular physical activity discussed with the patient she is up-to-date with the mammogram and due for DEXA next year. Patient declined colonoscopy Cologuard is ordered. (3) A-fib: Comment: 2007, on Sotalol, f/u with [facility] , on ASA for anticoagulation, refused Coumadin/Eliquis, Echo 04/07 nl EF, mild TR, 7 day Holter frequent APC's, no Afib Code(s): I48.91 - Unspecified atrial fibrillation Category: Medical Plan: Patient is established with Cardiology and had echocardiogram yesterday. She will follow-up with Dr. Rod Orders: Orders Pneumococcal 20 Immunization Today Z23 - Encounter for immunization Complete Blood Count Auto Diff 1 Year E55.9 - Vitamin D deficiency, unspecified, E78.5 - Hyperlipidemia, unspecified, Z00.00 - Encounter for general adult medical examination without abnormal findings TSH reflex Free T4 1 Year E55.9 - Vitamin D deficiency, unspecified, E78.5 - Hyperlipidemia, unspecified, Z00.00 - Encounter for general adult medical examination without abnormal findings Vitamin D 25-OH Total 1 Year E55.9 - Vitamin D deficiency, unspecified, E78.5 - Hyperlipidemia, unspecified, Z00.00 - Encounter for general adult medical examination without abnormal findings Comprehensive [place]. Panel Fast 1 Year E55.9 - Vitamin D deficiency, unspecified, E78.5 - Hyperlipidemia, unspecified, Z00.00 - Encounter for general adult medical examination without abnormal findings Lipid Panel 1 Year E55.9 - Vitamin D deficiency, unspecified, E78.5 - Hyperlipidemia, unspecified, Z00.00 - Encounter for general adult medical examination without abnormal findings Referrals Cologuard Test Z12.11 - Encounter for screening for malignant neoplasm of colon, Z12.12 - Encounter for screening for malignant neoplasm of rectum
--- OUTSIDE RECORDS SUMMARY | 2024-08-17 11:32 | XMS_ITS | Patient Health Record ---
[facility] Address [address] [place] [address] Care Team Providers Care Personal Support Worker Name Role Phone Lorena Villa MD Primary Care Provider Carina Conner Unavailable [phone] Allergies No Known Allergies Reason For Referral [...] Problem Status W/U Status Risk Notes Problem [id number] Osteoarthritis o f left ankle and foot (M19.072) Active confirmed Plan Of Treatment No Information Insurance Providers Payer Name Payer Address Payer Phone Subscriber Number Group Number Insured Name Patient Relationship to Insured Coverage Start Date Coverage End Date A[employer] [address] [place] [address] [id number] Martita Wolf Self - patient is the insured 2 Medical (General) History Medical History History ICD Code Back,Hip,and Knee pain Broken bones wrist osteoarthritis covid-19 Headaches/Migraines Eczema Numbness sinusitis Measles Mumps Chicken pox Surgical History Surgery Date(Month/Year) tonsillectomy 1957 plantar warts multiple x-ray/radiation t herapy wisdom teeth extraction 1970
== END 2024-08-17 11:15 | disposition home or self-care (01) ==
LOC: HO.HMCC 10:04
PROVIDERS: PCP Internal Medicine; Visit Provider Internal Medicine
DX: E78.5 Hyperlipidemia, unspecified (principal); Z00.00 Encounter for general adult medical examination without abnormal findings; I48.91 Unspecified atrial fibrillation; Z23 Encounter for immunization

== ENCOUNTER → 2024-08-17 10:04 | Outpatient (BNVA) | payer MEDICARE, SELFPAY | PROVIDERS: PCP Internal Medicine; Visit Provider Internal Medicine | DX: Z00.00 Encounter for general adult medical examination without abnormal findings (principal); E78.5 Hyperlipidemia, unspecified; I48.91 Unspecified atrial fibrillation; E55.9 Vitamin D deficiency, unspecified; Z23 Encounter for immunization | CPT/HCPCS: 90471; 90677; 96127; 99397 ==

== ENCOUNTER 2024-12-14 11:03 | Day surgery (SDC) | payer MEDICARE, SELFPAY ==
--- NOTE | 2024-12-14 11:07 | HO.ANESPROP2 ---
Documented by User: Agnes Burger NP 12/14/24 11:12 HPI - Anesthesia Eval Consult details Narrative: 74 yr old female for colonoscopy Atrial fibrillation: on ASA only, sotalol for rate control; saw [facility] cards 07/2024, reported afib symptoms, he updated echo (*see below). 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) History of tonsillectomy (Acute) FHx: melanoma (Acute) Colonoscopy refused (Acute) Vitamin D deficiency (Acute) Neuropathy (Acute) Annual physical exam (Acute) Past Medical History Medical History A-fib Annual physical exam Colonoscopy refused Skin lesion of lower extremity Family History Family History Mother HTN (hypertension) Melanoma Surgical History Surgical History Hx of cataract surgery Hx of surgical procedure (06/16/24) H/O vitrectomy Social History Social History Household Members Other:: , daughter wang in [facility] Housing: Condominium Patient Tobacco Use Status: Never used Tobacco e-Cigarette/Vaping Use: Never Used Use of substances other than those prescribed or required for medical reasons: No Have you been hit, kicked, punched, or otherwise hurt by someone within the past year? If so, by whom?: No Are you DNR?: No Advance Directives: No Advance Directives Information Provided: Yes service: No Current occupational status: retired Cognitive needs: No Hearing needs: No Vision needs: Yes Meds Allergies Allergy/AdvReac Type Severity Reaction Status Date / Time No Known Allergies Allergy Verified 12/14/24 11:34 Home Medications ?Medication ?Instructions ?Recorded ?Confirmed ?Last Taken ?Type Lactobacillus acidophilus 10 10,000 mmu cells PO DAILY 10/25/21 08/17/24 12/07/24 History billion cell capsule (Probiotic) aspirin 325 mg tablet 325 mg PO DAILY 10/25/21 08/17/24 12/07/24 History biotin 1,250 mcg-collagen 50 tab PO 10/25/21 08/17/24 12/07/24 History mg-vit C 67.5 mg-vit E-herbal chew tablet coenzyme S41-jltmobg E 100 mg-100 cap PO 10/25/21 08/17/24 12/07/24 History unit capsule ginkgo biloba 40 mg tablet 400 mg PO DAILY 10/25/21 08/17/24 12/07/24 History loratadine 10 mg tablet 10 mg PO DAILY 10/25/21 08/17/24 12/07/24 History lutein 25 mg-zeaxanthin 5 mg cap PO 10/25/21 08/17/24 12/07/24 History capsule magnesium 250 mg tablet 500 mg PO DAILY 10/25/21 08/17/24 12/07/24 History multivitamin 1 tab PO DAILY 10/25/21 08/17/24 12/07/24 History red yeast rice 600 mg tablet 600 mg PO DAILY 10/25/21 08/17/24 12/07/24 History zinc acetate 50 mg (zinc) capsule 50 mg PO DAILY 10/25/21 08/17/24 12/07/24 History Exam Narrative Narrative: ECHO 08/2024 Conclusions: - The left ventricular systolic function is normal. The visually estimated ejection fraction is between 60-65%. - No obvious valvular pathology seen on this study. - Probably large aortic arch plaque, but not well visualized. EKG 07/2024 Normal sinus, rate 71 Documented by User: Alba Tenorio MD 12/14/24 13:41 PMFSH Past Medical History Medical History A-fib Annual physical exam Colonoscopy refused Skin lesion of lower extremity Family History Family History Mother HTN (hypertension) Melanoma Family history of problems with anesthesia: No Surgical History Surgical History Hx of cataract surgery Hx of surgical procedure (06/16/24) H/O vitrectomy History of Problems with Anesthesia: No Social History Social History Household Members Other:: , daughter wang in [facility] Housing: Condominium Patient Tobacco Use Status: Never used Tobacco e-Cigarette/Vaping Use: Never Used Use of substances other than those prescribed or required for medical reasons: No Have you been hit, kicked, punched, or otherwise hurt by someone within the past year? If so, by whom?: No Are you DNR?: No Advance Directives: No Advance Directives Information Provided: Yes service: No Current occupational status: retired Cognitive needs: No Hearing needs: No Vision needs: Yes Meds Allergies Allergy/AdvReac Type Severity Reaction Status Date / Time No Known Allergies Allergy Verified 12/14/24 11:34 Home Medications ?Medication ?Instructions ?Recorded ?Confirmed ?Last Taken ?Type Lactobacillus acidophilus 10 10,000 mmu cells PO DAILY 10/25/21 08/17/24 12/07/24 History billion cell capsule (Probiotic) aspirin 325 mg tablet 325 mg PO DAILY 10/25/21 08/17/24 12/07/24 History biotin 1,250 mcg-collagen 50 tab PO 10/25/21 08/17/24 12/07/24 History mg-vit C 67.5 mg-vit E-herbal chew tablet coenzyme P43-abathfb E 100 mg-100 cap PO 10/25/21 08/17/24 12/07/24 History unit capsule ginkgo biloba 40 mg tablet 400 mg PO DAILY 10/25/21 08/17/24 12/07/24 History loratadine 10 mg tablet 10 mg PO DAILY 10/25/21 08/17/24 12/07/24 History lutein 25 mg-zeaxanthin 5 mg cap PO 10/25/21 08/17/24 12/07/24 History capsule magnesium 250 mg tablet 500 mg PO DAILY 10/25/21 08/17/24 12/07/24 History multivitamin 1 tab PO DAILY 10/25/21 08/17/24 12/07/24 History red yeast rice 600 mg tablet 600 mg PO DAILY 10/25/21 08/17/24 12/07/24 History zinc acetate 50 mg (zinc) capsule 50 mg PO DAILY 10/25/21 08/17/24 12/07/24 History Exam Airway Mallampati Class: II TM Dist: >3cm Neck ROM: Limited Heart: afib Lungs: cta Assessment and Plan Assessment Anesthesia Assessment: Anesthesia Plan Discussed and Chart Reviewed Final Anesthetic Review Family History of Problems with Anesthesia: No History of Problems with Anesthesia: No NPO: Yes ASA Class: III Final Preanesthetic Review: No Changes in Pt Med Stat, Meds/Allgs Chart Reviewed, Consent Obtained/Reviewed and Anes Risks/Benef Reviewed Patient Risk: Intermediate Procedure Risk: Low Anesthetic Plan Anesthetic Plan: MAC: Disposition: Standard PACU
[2024-12-14 11:24] VITALS: BMI 29.8
[2024-12-14] MEDS: Lactated Ringers 1,000 ML 100 ML IVCONT (11:45)
--- NOTE | 2024-12-14 13:54 | MHC.SHP ---
Pre-Procedural Eval Section A - 24 Hr Update-Section A only Date of Service: 12/14/24 The patient is an INPATIENT: No Changes since office visit: No Cold of Flu in the past 2 weeks, No New Medical Problems, No Changes in Medication and No Patient answered all questions The patient has been examined within 24 hours of the surgical procedure. The History & Physical has been completed within 30 days and I have reviewed it.: Yes Section B - Complete if H&P > 30 days Chief Complaint: Other fecal abnormalities Allergies: Allergies Allergy/AdvReac Type Severity Reaction Status Date / Time No Known Allergies Allergy Verified 12/14/24 11:34 Plan I have reviewed the history and physical and performed a pertinent physical examination on my patient. No changes have occurred unless specified. Time Spent With Patient Time: Total time managing care of this patient today ____ minutes.
[2024-12-14 14:35] VITALS: BP 101/56; PULSE 67; RESP 16; TEMP 36.1; O2SAT 96
[2024-12-14 14:51] VITALS: BP 113/62; PULSE 58; RESP 18; TEMP 36.6; O2SAT 98
--- NOTE | 2024-12-15 01:39 | OP_ITS ---
DATE OF SERVICE: 12/14/2024 SURGEON: Elias Corona MD INDICATIONS: Abnormal findings in stool. PREOPERATIVE DIAGNOSIS: POSTOPERATIVE DIAGNOSIS: PROCEDURE PERFORMED: Colonoscopy to the terminal ileum. ESTIMATED BLOOD LOSS: COMPLICATIONS: ANESTHESIA: ASSISTANTS: SPECIMENS: MEDICATIONS: Monitored anesthesia care. DESCRIPTION OF PROCEDURE: History and physical performed. The risks and benefits of the procedure were explained to the patient and informed consent was obtained. The patient was placed in the left lateral decubitus position. A digital rectal exam was performed and was found to be normal. The Olympus pediatric video colonoscope was introduced into the rectum and advanced to the cecum. The cecum was identified by transillumination, palpation, and identification of ileocecal valve. Examination was performed. The scope was removed. She tolerated the procedure well and was returned to recovery in stable condition. FINDINGS: The terminal ileum was examined and appeared normal. The visualized colonic mucosa was normal. There was a large amount of mucus in the vicinity of the appendiceal orifice, but no obvious malignancy could be identified. The area was carefully examined and appeared normal endoscopically. The visualized colonic mucosa was otherwise normal. The quality of prep was good. No polyps were identified. Retroflexed examination showed small internal hemorrhoids. IMPRESSION: Normal colonoscopy. Abnormal amount of mucus in cecum, r/o mucinous cystic neoplasm of appendix RECOMMENDATION: 1. Followup as needed. 2. Repeat colonoscopy is recommended in 10 years for average-risk individuals. 3. Obtain CT scanning to better evaluate the appendix and rule out mucinous cystic neoplasm. MD JIM Hansen/NHUNG / [id number] MTDD
== END 2024-12-14 15:17 | disposition home or self-care (01) ==
PROVIDERS: PCP Internal Medicine; Visit Provider Internal Medicine Gastroenterology
PROC: 0DJD8ZZ Inspection of Lower Intestinal Tract, Via Natural or Artificial Opening Endoscopic (ICD-10-PCS; CPT 45378; principal; 2024-12-14 12:30)
DX: R19.5 Other fecal abnormalities (principal); I48.91 Unspecified atrial fibrillation; Z79.899 Other long term (current) drug therapy; Z98.890 Other specified postprocedural states
CPT/HCPCS: 45378; J2704

== ENCOUNTER 2025-01-11 09:49 | Outpatient (REF) | payer MEDICARE, SELFPAY ==
--- OUTSIDE RECORDS SUMMARY | 2024-12-14 07:50 | XMS_ITS ---
Author Organization [facility] Address [address] [place] [address] Care Team Providers Care Neurosurgical Nurse Name Role Phone Lorena Villa MD Primary [...] Active Encounters Encounter Location Date Provider Diagnosis [facility] Out[facility] [address], [place] [phone] 12/14/2024 Elias Corona Jr Plan Of Treatment No Information Progress Notes * LITA DENNYOB:1950 (74 yo F)Acc No.[id number]:12/14/2024 COLON WITH MAC Patient: DANILO VALLADARES Provider: Cecilia Corona MD :1950 A ge:74 Y S ex:Female Date:12/14/2024 Address:[facility] [address] [facility], [address], [place] [address] Pcp:Lorena Villa MD Subjective: * Chief Complaints: [...] MD Date: 0 12/14/2024 Generated for Bruce gutierrez/Adan/Kellieitting on: 11:30 AM EDT
--- OUTSIDE RECORDS SUMMARY | 2025-01-11 11:31 | XMS_ITS | Patient Health Record ---
Author Organization [facility] Address [address] [place] [phone] Care Team Providers Care Video Game Engineer Name Role Phone Lorena Villa MD Primary Care Provider Elias Hdz Jr Unavailable Allergies No Known Allergies Reason For Referral No Information Medications Medication SIG (Take, Route, Frequency, Duration) Notes Start Date End Date Status Vitamin B-12 100 MCG as directed Orally Active Probiotic - as directed Orally Active Apple Cider Vinegar 600 MG as directed O rally twice a day Active Lutein-Zeaxanthin 25-5 MG as directed Orally Active Ginkgo Biloba 120 MG as directed Orally twice a day Active CoQ10 100 MG as directed Orally Active Red Yeast Rice 55 MG as directed Orally Active Vitamin K2 100 MCG as directed Orally Active Zinc 50 MG 1 tablet Orally Once a day Active Magnesium 250 MG 2 Orally Once a day Active Sotalol HCl 80 MG 1 tablet Orally ever y 12 hrs Active Loratadine 10 MG 1 tablet Orally Once a day Active Curcumin 95 500 MG as directed Orally Active Multivitamin Adult - 1 tablet Orally Onc e a day Active Black Elderberry 1000 MG as directed Orally Active Citracal +D3 250-112.5-12.5 MG-MG-MCG as directed Orally Active Vitamin B 12 500 MCG 1 tablet Orally Onc e a day Active Garlique 400 MG as directed Orally Active Social History Tobacco Use: Social History Observation Description Date Details (start date - stop date) Never Smoker NA - NA Tobacco Control (Standard) Question Answer Notes Tobacco use: Nonsmoker AUDIT-C (Standard) Question Answer Notes Did you have a drink contain ing alcohol in the past year? Yes How often did you have a dri nk containing alcohol in the past year? Monthly or less (1 point) How many drinks did you have on a typical day when you were drinking in the past year? 1 or 2 drinks (0 point) How often did you have six o r more drinks on one occasion in the past year? Never (0 point) Points 1 Interpretation Negative Problems Problem Type SNOMED Code ICD Code Onset Dates Problem Status W/U Status Risk Notes Problem Abnormal feces (605567326) Abnormal findings in stool (R19.5) Active confirmed Problem Colonoscopy abnormal (996567724) Abnormal colonoscopy (R93.3) Active confirmed Vital Signs Temperature 97.7 degrees Fahrenheit 11/25/2024 Blood pressure diastolic 01 mm Hg 11/25/2024 Height 6 in 11/25/2024 Blood pressure systolic 001 mm Hg 11/25/2024 Weight 191.4 lbs 11/25/2024 BMI 3737.62 kg/m2 11/25/2024 Encounters Encounter Location Date Provider Diagnosis [facility] [place] [address] [place] [id number] 12/14/2024 Elias Corona Jr [facility] [address] [place] [phone] 11/25/2024 Elias Corona Jr Abnormal findings in stool R19.5 [facility] [address] [place] [phone] 12/08/2024 Elias Corona Jr [facility] [address] [place] [phone] 12/15/2024 Elias Corona Jr Abnormal findings in stool R19.5 and Abnormal colonoscopy R93.3 Assessments Encounter Date Diagnosis (ICD Code) Assessment Notes Treatment Notes Treatment Clinical Notes Section Notes 11/25/2024 Abnormal findings in stool (ICD-10 - R19.5) 12/15/2024 Abnormal findings in stool (ICD-10 - R19.5) 12/15/2024 Abnormal colonoscopy (ICD-10 - R93.3) Plan Of Treatment Pending Test Test Name Order Date BUN 12/15/2024 CREATININE 12/15/2024 CT ABD & PELVIS WITH CONTRAST 12/15/2024 Future Test Test Name Order Date COLONOSCOPY 11/25/2024 Insurance Providers Payer Name Payer Address Payer Phone Subscriber Number Group Number Insured Name Patient Relationship to Insured Coverage Start Date Coverage End Date [facility] [place] [address] [place] [id number] DANILO DENNY Self - patient is the insured Medical (General) History Medical History History ICD Code Atrial Fibrilation Surgical History Surgery Date(Month/Year) vitrectomy 2022 tonsillectomy 1957
--- OUTSIDE RECORDS SUMMARY | 2025-01-11 11:31 | XMS_ITS | Clinical Summary ---
Author Organization [facility] Address [address] [address] Phone Care Team Providers Care Benefit Authorizer Name Role Phone Pcp, Unknown Primary Care Provider Unavailabl e Allergies No known active allergies Medications aspirin 325 MG tablet Take 325 mg [...] with a working camera? Not on file Comments Unknown Sex and Gender Information Value Date Recorded Sex Assigned at Not on file Legal Sex Female 2:33 PM EST Gender Identity Not on file Sexual Orientation [...] 2002 ZOSTER VACCINES (1 of 2) 2002 OSTEOPOROSIS SCREENING INITI AL (ONE-TIME) 2017 INFLUENZA VACCINE (#1) 2024 COVID-19 VACCINE (1 - 2024-2 6 season) 2024 RSV VACCINE (1 - 1-dose 75+ series) 06/29/2027 SMOKING STATUS SCREENING (On ce After 26 Yrs) Completed 06/22/2021 HEPATITIS A VACCINES Aged Out No long er eligible based on patient's age to complete this topic HIB VACCINES Aged Out No longer eligi ble based on patient's age to complete this topic MENINGOCOCCAL VACCINES (ACWY) Aged Out No longer eligible based on patient's age to complete this topic MENINGOCOCCAL VACCINES (B) Aged Out N o longer eligible based on patient's age to complete this topic Medical Devices Not on file Insurance [employer] PPO MEDICARE REPLACEMENT AETNA O MEDICARE REPLACEMENT AETNA O MEDICARE REPLACEMENT AETNA O MEDICARE REPLACEMENT AETNA PPO MEDICARE REPLACEMENT AETNA PPO MEDICARE REPLACEMENT AETNA PPO MEDICARE REPLACEMENT AETNA PPO MEDICARE REPLACEMENT [address] [place] [id number] AETNA PPO MEDICARE REPLACEMENT Care Teams Benefit Authorizer Relationship Specialty Start Date End Date Pcp, Unknown PCP - General 04/06/21 Additional Source Comments The information contained in this document represents components of the legal health record. It is not the complete legal health record.[facility]
--- OUTSIDE RECORDS SUMMARY | 2025-01-11 11:31 | XMS_ITS | Patient Health Record ---
[facility] Address [address] [place] [address] Care Team Providers Care Insulation Batting Machine Operator Name Role Phone Lorena Villa MD Primary Care Provider Carina Conner Unavailable [phone] Allergies No Known Allergies Reason For Referral No Information Medications Medication SIG (Take, Route, Fr equency, Duration) Notes Start Date End Date Status Curcumax Pro Active Multi Vitamin - 1 tablet Orally Once a day; Duration: 30 day(s) Active Red Yeast Rice Activ e Loratadine 10 MG 1 tablet Orally Once a day Active Melatonin Active Aspirin 325 MG 1 tablet Orally Once a day; Duration: 30 day(s) Active Apple Cider Vinegar Active [...] Problem Status W/U Status Risk Notes Problem Localized, primary osteoarthritis of the ankle and/or foot (528439043) Osteoarthritis of left ankle and foot (M19.072) Active confirmed Plan Of Treatment No Information Insurance Providers Payer Name Payer Address Payer Phone Subscriber Number Group Number Insured Name Patient Relationship to Insured Coverage Start Date Coverage End Date [employer] [address] [place] [phone] [id number] MaryannThaden Self - patient is the insured 2 Medical (General) History Medical History History ICD Code Back,Hip,and Knee pain Broken bones wrist osteoarthritis covid-19 Headaches/Migraines Eczema Numbness sinusitis Measles Mumps Chicken pox Surgical History Surgery Date(Month/Year) tonsillectomy 1957 plantar warts multiple x-ray/radiation t herapy wisdom teeth extraction 1970
[2025-01-11 14:16] LABS: Blood Urea Nitrogen 24 mg/dL (9-16); Estimated Glomerular Filt Rate > 60
== END 2025-01-11 09:50 | disposition home or self-care (01) ==
LOC: HO.HMGCLDS 09:49
PROVIDERS: PCP Internal Medicine; Visit Provider Internal Medicine Gastroenterology
DX: R19.5 Other fecal abnormalities (principal); R93.3 Abnormal findings on diagnostic imaging of other parts of digestive tract
CPT/HCPCS: 36415; 82565; 84520

== ENCOUNTER 2025-01-24 11:17 | Outpatient (REF) | payer MEDICARE, SELFPAY ==
--- OUTSIDE RECORDS SUMMARY | 2025-01-24 13:37 | XMS_ITS | Clinical Summary ---
Author Organization [facility] Address [address] [address] Phone Care Team Providers Care Double Cutter Name Role Phone Pcp, Unknown Primary Care [...] PPO MEDICARE REPLACEMENT A[employer] PPO MEDICARE REPLACEMENT [address] [place] [id number] AETNA PPO MEDICARE REPLACEMENT Care Teams Double Cutter Relationship Specialty Start Date End Date Pcp, Unknown PCP - General 04/06/21 Additional Source Comments The information contained in this document represents components of the legal health record. It is not the complete legal health record.[facility]
[2025-01-24 14:18] LABS: Anion Gap 9 (12-20); Blood Urea Nitrogen 17 mg/dL (9-16); Calcium 9.1 mg/dL (8.4-10.2); Carbon Dioxide 26 mmol/L (22-29); Chloride 110 mmol/L (96-108); Estimated Glomerular Filt Rate > 60; Potassium 4.1 mmol/L (3.3-5.1); Sodium 141 mmol/L (135-145)
== END 2025-01-24 11:18 | disposition home or self-care (01) ==
LOC: HO.HMGCLDS 11:17
PROVIDERS: PCP Internal Medicine; Visit Provider Internal Medicine Cardiovascular Disease
DX: I48.91 Unspecified atrial fibrillation (principal)
CPT/HCPCS: 36415; 80048

== ENCOUNTER 2025-01-25 12:53 | Outpatient (REF) | payer MEDICARE, SELFPAY ==
--- OUTSIDE RECORDS SUMMARY | 2024-12-14 06:50 | XMS_ITS ---
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 Role Phone Lorena Villa MD Primary Care Provider UnavailElias Kiser Jr REASON FOR VISIT abnormal findings in stool Medications Medication SIG (Take, Route, Frequency, Duration) Notes Start Date End Date Status Sotalol HCl 80 MG 1 tablet Orally ever y 12 hrs Active Loratadine 10 MG 1 tablet Orally Once a day Active Curcumin 95 500 MG as directed Orally Active Multivitamin Adult - 1 tablet Orally Onc e a day Active Citracal +D3 250-112.5-12.5 MG-MG-MCG as directed Orally Active Probiotic - as directed Orally Active Apple Cider Vinegar 600 MG as directed O rally twice a day Active Lutein-Zeaxanthin 25-5 MG as directed Orally Active Ginkgo Biloba 120 MG as directed Orally twice a day Active Garlique 400 MG as directed Orally Active CoQ10 100 MG as directed Orally Active Red Yeast Rice 55 MG as directed Orally Active Vitamin K2 100 MCG as directed Orally Active Zinc 50 MG 1 tablet Orally Once a day Active Magnesium 250 MG 2 Orally Once a day Active Vitamin B-12 100 MCG as directed Orally Active Black Elderberry 1000 MG as directed Orally Active Vitamin B 12 500 MCG 1 tablet Orally Onc e a day Active Encounters Encounter Location Date Provider Diagnosis [facility] [address], [place] [phone] 12/14/2024 Elias Corona Jr Plan Of Treatment No Information Progress Notes * LITA DENNYOB:1950 (74 yo F)Acc No.[id number]:12/14/2024 COLON WITH MAC Patient: DANILO VALLADARES Provider: Cecilia Corona MD :1950 A ge:74 Y S ex:Female Date:12/14/2024 [facility] [address], [place] [address] Pcp:Lorena Villa MD Subjective: * Chief Complaints: * 1 . Abnormal findings in stool. * Medical History: * Medications: T aking Vitamin B-12 100 MCG Tablet as directed Orally , Taking Vitamin B 12 500 MCG Tablet 1 tablet Orally Once a day , Taking Black Elderberry 1000 MG Capsule as directed Orally , Taking Magnesium 250 MG Tablet 2 Orally Once a day , Taking Zinc 50 MG Tablet 1 tablet Orally Once a day , Taking Vitamin K2 100 MCG Capsule as directed Orally , Taking Red Yeast Rice 55 MG Capsule as directed Orally , Taking CoQ10 100 MG Capsule as directed Orally , Taking Ginkgo Biloba 120 MG Tablet as directed Orally twice a day , Taking Lutein-Zeaxanthin 25-5 MG Capsule as directed Orally , Taking Apple Cider Vinegar 600 MG Capsule as directed Orally twice a day , Taking Probiotic - Tablet Chewable as directed Orally , Taking Garlique 400 MG Tablet Delayed Release as directed Orally , Taking Citracal +D3 250-112.5-12.5 MG-MG-MCG Tablet Chewable as directed Orally , Taking Multivitamin Adult - Tablet 1 tablet Orally Once a day , Taking Curcumin 95 500 MG Capsule as directed Orally , Taking Loratadine 10 MG Tablet 1 tablet Orally Once a day , Taking Sotalol HCl 80 MG Tablet 1 tablet Orally every 12 hrs Objective: * Vitals: Assessment: Plan: * Treatment: * * The named appointment provid er may or may not be the originator of this progress note, and it is not deemed complete until electronically signed by the appointment provider. Sign off status: Pending * Provider: Cecilia Corona MD Date: 0 12/14/2024 Generated for Bruce gutierrez/Adan/Reynold on: 03/27/2024 02:35 PM EST
--- NOTE | ~2025-01-25 | CT_ITS ---
EXAMINATION: CT ABDOMEN AND PELVIS WITH CONTRAST CLINICAL INFORMATION: abn findings in colonscopy COMPARISON: None available. TECHNIQUE: Multidetector volumetric images were obtained from the superior aspect of the liver through the pubic symphysis following administration 85 mL of Omnipaque 350 intravenous contrast. Sagittal and coronal reformatted images were obtained on the technologist's workstation. Oral contrast: Present This CT examination was performed using dose optimization techniques as appropriate, variously including the following: *Automated exposure control *Adjustment of mA and/or kV according to patient size (this includes techniques or standardized protocols for targeted exams where dose is matched to indication/reason for exam; i.e. extremities or head) *Use of iterative reconstruction technique FINDINGS: LUNG BASES: There is a 6 mm pulmonary nodule in the anterior aspect of the right middle lobe contacting pleura. LIVER, GALLBLADDER, AND BILIARY TREE: There is a 20 mm lobulated cystic lesion in the superior left lateral segment of the liver consistent with a benign simple hepatic cyst. There is a 10 mm focal hyperenhancing lesion in the posterior inferior right hepatic segment. The gallbladder is unremarkable with no evidence of radiopaque gallstones, gallbladder wall thickening, or obvious pericholecystic inflammatory changes. PANCREAS: Unremarkable. SPLEEN: Unremarkable. ADRENAL GLANDS: Unremarkable. KIDNEYS AND URETERS: Small simple hepatic cyst is present involving medial superior pole left kidney. Small hypodensities are present in the central and lower pole of the right mid kidney that are too small to characterize but probably represent simple renal cysts. There is a 6 mm calcification that appears to be just medial to the right ureterovesicular junction. BLADDER: Unremarkable. GASTROINTESTINAL TRACT: The appendix is filled with fluid measuring up to 12 mm diameter. There is no fat stranding in the adjacent mesentery. The wall is not clearly thickened or hyperenhancing. No other abnormalities are evident. ABDOMINAL WALL: Small umbilical hernia contains fat. LYMPH NODES: Normal. VASCULAR: Unremarkable. PELVIC VISCERA: Unremarkable. OSSEOUS STRUCTURES: Degenerative disc disease and facet osteoarthritis is most advanced at L4-5 and L5-S1. Cystic-like changes are present in the anterior acetabular roof, left greater than right. 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 There is a solid 6 mm pulmonary nodule in the right middle lobe contacting pleura. Follow-up CT at 6-12 months, then optional CT at 18-24 months unless patient is high risk, in which case 18-[address] is recommended. High risk patients includes those with a history of smoking, first-degree relative with lung cancer, or exposure to uranium, radon, or asbestos. There is a 10 mm hyperenhancing lesion in the inferior tip of the right hepatic lobe. In low-risk patients, no further follow-up is indicated. In high-risk patients, for example those with liver disease or known malignancy, follow-up hepatic MRI without and with IV contrast is recommended. Fleischner guidelines were followed. Electronically signed by: Flavio Arriaga MD 01/25/2025 04:21 PM [facility]
--- OUTSIDE RECORDS SUMMARY | 2025-01-25 14:36 | XMS_ITS | Patient Health Record ---
[facility] Address [address] [place] [address] Care Team Providers Care And Taxi Instructor Bus Trolley Name Role Phone Lorena Villa MD Primary Care Provider Carina Conner Unavailable [phone] Allergies No Known Allergies Reason For Referral [...] primary osteoarthritis of the ankle and/or foot (566602088) Osteoarthritis of left ankle and foot (M19.072) Active confirmed Plan Of Treatment No Information Insurance Providers Payer Name Payer Address Payer Phone Subscriber Number Group Number Insured Name Patient Relationship to Insured Coverage Start Date Coverage End Date [employer] [address] [place] [phone] [id number] MaryannThaden Self - patient is the insured 2 Medical (General) History Medical History History ICD Code Back,Hip,and Knee pain Broken bones wrist osteoarthritis covid-19 Headaches/Migraines Eczema Numbness sinusitis Measles Mumps Chicken pox Surgical History Surgery Date(Month/Year) tonsillectomy 1957 plantar warts multiple x-ray/radiation t herapy wisdom teeth extraction 1970
--- OUTSIDE RECORDS SUMMARY | 2025-01-25 14:36 | XMS_ITS | Patient Health Record ---
Author Organization [facility] Address [address] [place] [address] Care Team Providers Care Laborer Demolition Name Role Phone Lorena Villa MD Primary Care Provider Elias Hdz Jr Unavailable [phone] Allergies No Known Allergies Results Component Value Reference Range Notes Blood Urea Nitrogen Reviewed date:01/11/2025 04:39:36 PM Interpretation: Performing Lab:[facility], [address] [place] [id number] Notes/Report: Blood Urea Nitrogen 24 9-16 mg/dL Creatinine Reviewed date:01/11/2025 04:39:24 PM Interpretation: Performing Lab:[facility], [address] [place] [phone] Notes/Report: Creatinine 0.82 0.5-1.4 mg/dL Estimated Glomerular Filt Rate > 60 Chronic Kidney Disease: Estimated GFR < 60 mL/min/1.73m2 Severe Kidney Disease: Estimated GFR < 15 mL/min/1.73m2 Reason For Referral No Information Medications Medication [...] W/U Status Risk Notes Problem Abnormal feces (824761610) Abnormal findings in stool (R19.5) Active confirmed Problem Colonoscopy abnormal (391043329) Abnormal colonoscopy (R93.3) Active confirmed Vital Signs Temperature 97.7 degrees Fahrenheit 11/25/2024 Blood pressure diastolic 01 mm Hg 11/25/2024 Height 6 in 11/25/2024 Blood pressure systolic 001 mm Hg 11/25/2024 Weight 191.4 lbs 11/25/2024 BMI 3737.62 kg/m2 11/25/2024 Encounters Encounter Location Date Provider Diagnosis [facility] [place] Out[place] [address] [place], [place] [phone] 12/14/2024 Elias Corona Jr [facility] [address] [place] [phone] 11/25/2024 Elias Corona Jr Abnormal findings in stool R19.5 [facility] [address] [place] [phone] 12/08/2024 Elias Corona Jr [facility] [address] [place] [address] 12/15/2024 Elias Corona Jr Abnormal findings in [...] Insured Coverage Start Date Coverage End Date [facility] [address] [place], [place] [id number] DANILO DENNY Self - patient is the insured Medical (General) History Medical History History ICD Code Atrial Fibrilation Surgical History Surgery Date(Month/Year) vitrectomy 2022 tonsillectomy 1957
--- OUTSIDE RECORDS SUMMARY | 2025-01-25 14:37 | XMS_ITS | Clinical Summary ---
Author Organization [facility] Address [address] [address] Phone Care Team Providers Care Sample Distributor Name Role Phone Pcp, Unknown Primary Care [...] PPO MEDICARE REPLACEMENT [employer] PPO MEDICARE REPLACEMENT [address] [place] [id number] A[employer] PPO MEDICARE REPLACEMENT Care Teams Sample Distributor Relationship Specialty Start Date End Date Pcp, Unknown PCP - General 04/06/21 Additional Source Comments The information contained in this document represents components of the legal health record. It is not the complete legal health record.[facility]
[2025-01-25] MEDS: iohexoL 350 MG/ML 100 ML INFUS..BTL 85 ML IV (15:49)
[2025-01-25] MEDS: Barium Sulfate Oral (Mocha) 450 ML ORAL.SUSP 900 ML PO (15:49)
== END 2025-01-25 12:54 | disposition home or self-care (01) ==
LOC: HO.CT 12:53
PROVIDERS: PCP Internal Medicine; Visit Provider Internal Medicine Gastroenterology
DX: R19.5 Other fecal abnormalities (principal); R93.3 Abnormal findings on diagnostic imaging of other parts of digestive tract
CPT/HCPCS: 74177; Q9967

== ENCOUNTER → 2025-01-25 15:35 | Outpatient (BNV) | payer MEDICARE, SELFPAY | PROVIDERS: PCP Internal Medicine; Visit Provider Radiology Diagnostic Radiology | DX: K38.0 Hyperplasia of appendix (principal); R91.1 Solitary pulmonary nodule; Z87.891 Personal history of nicotine dependence | CPT/HCPCS: 74177 ==

== ENCOUNTER 2025-02-03 12:18 | Outpatient (AMB) | payer MEDICARE, SELFPAY ==
[2025-02-03 12:47] VITALS: BP 140/92; PULSE 65; O2SAT 99; BMI 29.9
--- NOTE | 2025-02-03 12:47 | AM.OFFWIN_ITS ---
Intake Vital Signs 02/03/25 12:47 Height 5 ft 6 in Weight 185 lb BMI 29.9 BP 140/92 H Blood Pressure Location Lt brachial Position Sitting Pulse 65 Pulse Source Pulse Oximeter Pulse Oximetry (%) 99 Oxygen Delivery Method Room Air Intake Visit Reasons: EP right side of neck muscle pain Intake Note: Patient presents c/o right sided neck muscle pain x1 week. No injury noted. Patient Tobacco Use Status: Never used Tobacco Allergies No Known Allergies Allergy (Verified 02/03/25 12:50) HPI HPI Comments History of Present Illness Details 74 y/o female [facility]/o neck pain for a little over one week. She denies any preceding injury or trauma. Pain described as intermittent stiffness and soreness. Reports partial relief with alternating ice/heat therapy and Acetaminophen. She also had a professional neck massage this past Friday, which provided good temporary relief. Denies headaches, numbness, tingling, weakness of upper extremities, vision changes, dizziness, fever, or recent illness. [facility] Medical History (Updated 02/03/25 @ 13:09 by Swathi Ruby NP) Cervicalgia A-fib Annual physical exam Colonoscopy refused Skin lesion of lower extremity Surgical History Hx of cataract surgery Hx of surgical procedure (06/16/24) H/O vitrectomy Family History Mother HTN (hypertension) Melanoma Social History Household Members Other:: , daughter wang in [facility] Housing: Condominium Patient Tobacco Use Status: Never used Tobacco e-Cigarette/Vaping Use: Never Used service: No Current occupational status: retired Cognitive needs: No Hearing needs: No Vision needs: Yes Review of Systems Const All systems reviewed & are unremarkable except as noted in HPI and below Physical Exam Vital Signs: Last Vital Signs Pulse 65 02/03/25 12:47 BP 140/92 H 02/03/25 12:47 Pulse Ox 99 02/03/25 12:47 Oxygen Delivery Method Room Air 02/03/25 12:47 BMI result Body Mass Index 29.9 Const General: no acute distress Nutritional Appearance: well nourished Orientation/consciousness: patient oriented x3 Neck Other: Mild tenderness to palpation along bilateral paraspinal muscles; no midline bony tenderness. Decreased ROM with lateral rotation due to stiffness. No visible swelling, erythema, or deformity. Neck: Yes no lymphadenopathy Neuro Other: Strength 5/5 in upper extremities bilaterally. Sensation intact. Reflexes normal. General: patient oriented x3, gait normal and moves all extremities Psych Speech and movement: Normal speech and movement present Assessment & Plan Assessment & Plan (1) Cervicalgia: Code(s): M54.2 - Cervicalgia Plan: Cervical strain / musculoskeletal neck pain ? improving with conservative measures; no red flag symptoms. Muscle tension ? likely exacerbated by posture or recent activity. Continue alternating ice/heat therapy. Continue Acetaminophen as needed, not exceeding recommended daily limits. Add gentle neck stretching and ROM exercises; encourage good posture and ergonomic adjustments. Consider short course of NSAIDs if tolerated and no contraindications. Ordered PT Red flag education: seek care for worsening pain, new neurologic deficits, severe headache, fever, or inability to move neck. Orders: Orders PT Evaluation and Treatment Today M54.2 - Cervicalgia Medications: New cyclobenzaprine 10 mg PO BEDTIME 20 tabs 0RF M54.2 - Cervicalgia acetaminophen 1,000 mg (2 x 500 mg) PO Q6H PRN 30 caps 0RF pain M54.2 - Cervicalgia diclofenac potassium 25 mg PO BID 20 tabs 0RF M54.2 - Cervicalgia Coding Level of Care Code Est Pt Level 4 (17820) Diagnoses Cervicalgia M54.2 Time Spent (min) 20
== END 2025-02-03 13:10 | disposition home or self-care (01) ==
PROVIDERS: PCP Internal Medicine; Visit Provider Nurse Practitioner Family
DX: M54.2 Cervicalgia (principal)

== ENCOUNTER → 2025-02-03 12:18 | Outpatient (BNVA) | payer MEDICARE, SELFPAY | PROVIDERS: PCP Internal Medicine; Visit Provider Nurse Practitioner Family | DX: M54.2 Cervicalgia (principal) | CPT/HCPCS: 99212 ==